=== PATIENT | female | born 1965 | race Caucasian/White ===

== ENCOUNTER → 2017-06-07 | Outpatient (CLI) | payer OTHER ==
--- NOTE | 2017-06-07 14:06 | RAD ---
DATE: 06/07/2017 EXAM: MAMMO JUAN DIAG BILAT HISTORY: Screening COMPARISON: Screening examination 04/20/2015 note is made of additional examination 05/05/2015 and 12/14/2015 FINDINGS: Breast Density: SCATTERED The breast parenchyma shows scattered fibroglandular densities. Breast parenchyma level B. There are some punctate calcifications superiorly in the right breast 7 appearance similar to the previous exam. A clustered group of microcalcifications warranting biopsy is not seen no dominant mass or suspect group of calcifications warranting biopsy is seen in either breast. IMPRESSION: Benign findings BI-RADS CATEGORY: 2 BENIGN FINDING(S) RECOMMENDED FOLLOW-UP: 12M 12 MONTH FOLLOW-UP PQRS compliance statement: Patient information was entered into a reminder system with a target due date 06/07/2018 for the next mammogram. Mammography is a sensitive method for finding small breast cancers, but it does not detect them all and is not a substitute for careful clinical examination. A negative mammogram does not negate a clinically suspicious finding and should not result in delay in biopsying a clinically suspicious abnormality. "Our facility is accredited by the [employer] Mammography Program."
== END | disposition home or self-care (01) ==
LOC: KCIC MAMMO 12:52
PROVIDERS: ATTEND Internal Medicine
DX: R92.2 Inconclusive mammogram (principal)
CPT/HCPCS: G0204; G0279; 77062; 77066

== ENCOUNTER 2017-07-04 18:28 | Emergency (ER) | payer OTHER ==
[~2017-07-04] VITALS: Ht 172.7 cm; Wt 86.2 kg
[2017-07-04] MEDS ORDERED: IV NORMAL SALINE 1000ML BAG 1,000 ML IV SCH (19:07)
[2017-07-04 19:08] LABS: BILIRUBIN,URINE NEGATIVE (NEG); GLUCOSE,URINE NEGATIVE (NEG); NITRITE,URINE POSITIVE (NEG); PH,URINE 5.5; PROTEIN,URINE 100 mg/dL (NEG-TRACE); UROBILINOGEN,URINE 0.2 mg/dL (0.2 mg/dL)
[2017-07-04 19:18] LABS: BACTERIA,URINE MOD /HPF (0-FEW); SQUAMOUS EPITHELIAL CELL,UR FEW /LPF; WBC,URINE TNTC /HPF (0-4)
[2017-07-04] MEDS: fentaNYL PF VIAL 100 MCG/2 ML VIAL IV PRN ×2 (19:26→21:34)
[2017-07-04 19:30] LABS: BASO % 0 % (0-3); EOS % 1 % (0-3); HEMATOCRIT 41.1 % (36.0-47.0); HEMOGLOBIN 13.6 g/dL (12.0-15.5); LYMPH # 1.4 x10^3/uL (1.0-4.8); LYMPH % 11 % (24-48); MEAN CORPUSCULAR HEMOGLOBIN 29 pg (25-35); MEAN CORPUSCULAR HGB CONC 33 g/dL (31-37); MEAN CORPUSCULAR VOLUME 87 fL (79-100); MONO % 7 % (0-9); NEUT % 81 % (31-73); PLATELET COUNT 232 x10^3/uL (140-400); RED CELL DISTRIBUTION WIDTH 13.6 % (11.5-14.5); WHITE BLOOD COUNT 13.3 x10^3/uL (4.0-11.0)
[2017-07-04 19:40] LABS: CALCIUM 9.7 mg/dL (8.5-10.1); CREATININE 1.2 mg/dL (0.6-1.0); GFR 47.2; POTASSIUM 3.5 mmol/L (3.5-5.1)
[2017-07-04 19:41] LABS: NEG OBC UR NEG; POS OBC UR POS
[2017-07-04] MEDS ORDERED: KETOROLAC 30 MG/ML INJ. IV ONE (19:45)
[2017-07-04] MEDS ORDERED: ONDANSETRON PF 4 MG/2 ML VIAL. IV ONE (19:45)
[2017-07-04 19:47] LABS: ALBUMIN 3.6 g/dL (3.4-5.0); TOTAL BILIRUBIN 0.4 mg/dL (0.2-1.0); TOTAL PROTEIN 7.3 g/dL (6.4-8.2)
--- NOTE | 2017-07-04 20:01 | ED.ADGEN ---
Past Medical History Past Medical History: Kidney Stone Past Surgical History: , Other Additional Past Surgical Histo: LITHOTRIPSY X2 Alcohol Use: Rarely Drug Use: None Adult General Chief Complaint Chief Complaint: FLANK PAIN HPI HPI Patient is a 52 year old woman, history of renal calculi status post lithotripsy 2, who presents to the emergency department with a complaint of right flank pain. Patient states has began several days ago, states that she initially thought that she is experiencing a urinary tract infection, and self treated with leftover Cipro Floxin at home 3 days. She states the pain was initially severe, states she did begin to experience bladder spasms and then experienced nausea, and now more persistent dull left lower flank pain which is been unchanged over the past day. She has had some emesis, is unable to eat much today. She denies any diarrhea, any injuries, states that she did have chills today but no fever, denies any weakness, numbness, tingling, rashes. She has had some sore throat today and also headache. States that symptoms do feel consistent with previous episodes of renal cocktail a. She states her last calculus with 17 mm and did require lithotripsy as stated. Denies any other medical history or medical issues, no medications on a regular basis. Review of Systems Review of Systems Constitutional: Denies fever or chills. [] Eyes: Denies change in visual acuity. [] HENT: Denies nasal congestion or sore throat. [] Respiratory: Denies cough or shortness of breath. [] Cardiovascular: Denies chest pain or edema. [] GI: Right lower abdominal pain radiating from right flank, nausea, vomiting, no bloody stools or diarrhea. [] : Initial dysuria, none currently. Musculoskeletal: Denies back pain or joint pain. [] Integument: Denies rash. [] Neurologic: Denies headache, focal weakness or sensory changes. [] Endocrine: Denies polyuria or polydipsia. [] Lymphatic: Denies swollen glands. [] Psychiatric: Denies depression or anxiety. [] Current Medications Current Medications Current Medications Medications (Trade) Dose Ordered Sig/Ruddy Start Time Stop Time Status Last Admin Dose Admin Ceftriaxone Sodium 50 ml @ 100 mls/hr 1X ONCE 07/04/17 21:15 07/04/17 21:44 07/04/17 21:06 100 MLS/HR Fentanyl Citrate (Fentanyl 2ml Vial) 50 mcg PRN Q15MIN PRN 07/04/17 19:15 07/05/17 19:14 07/04/17 19:26 50 MCG Ketorolac Tromethamine (Toradol) 10 mg 1X ONCE 07/04/17 19:45 07/04/17 19:46 DC 07/04/17 19:25 10 MG Ondansetron HCl (Zofran) 4 mg 1X ONCE 07/04/17 19:45 07/04/17 19:46 DC 07/04/17 19:24 4 MG Sodium Chloride 1,000 ml @ 1,000 mls/hr 1X ONCE 07/04/17 21:15 07/04/17 22:14 Allergies Allergies Allergies Coded Allergies Type Severity Reaction Last Updated Verified sulfamethoxazole Allergy Unknown 09/19/13 Yes trimethoprim Allergy Unknown 09/19/13 Yes Physical Exam Physical Exam Constitutional: Well developed, well nourished, appears uncomfortable, non- toxic appearance. [] HENT: Normocephalic, atraumatic, bilateral external ears normal, oropharynx moist, no oral exudates, nose normal. [] Eyes: PERRLA, EOMI, conjunctiva normal, no discharge. [] Neck: Normal range of motion, no tenderness, supple, no stridor. [] Cardiovascular:Heart rate regular rhythm, no murmur , S1, S2, rubs or gallops.[] Lungs & Thorax: Bilateral breath sounds clear to auscultation, no wheezing, rhonchi, rales. No chest or crepitus or tenderness. [] Abdomen: Bowel sounds normal, soft, mild initial tenderness to palpation the suprapubic region, in the right lower quadrant radiating around to the right flank, no masses, no pulsatile masses. [] Skin: Warm, dry, no erythema, no rash. [] Back: No midline or paraspinal tenderness, positive for right-sided CVA tenderness[] Extremities: No tenderness, no cyanosis, no clubbing, ROM intact, no edema. [] Neurologic: Alert and oriented X 3, normal motor function, normal sensory function, no focal deficits noted. [] Psychologic: Affect normal, judgement normal, mood normal. [] Current Patient Data Vital Signs Vital Signs Date Time Temp Pulse Resp B/P (MAP) Pulse Ox O2 Delivery O2 Flow Rate FiO2 07/04/17 20:44 113 149/60 (89) 98 Room Air 07/04/17 18:40 98.8 22 98.8 Lab Values Laboratory Tests Test 07/04/17 18:39 07/04/17 19:00 Urine Collection Type Unknown Urine Color Yellow Urine Clarity Turbid Urine pH 5.5 Urine Specific [place] 1.010 Urine Protein 100 mg/dL (NEG-TRACE) Urine Glucose (UA) Negative mg/dL (NEG) Urine Ketones (Stick) Negative mg/dL (NEG) Urine Blood Large (NEG) Urine Nitrite Positive (NEG) Urine Bilirubin Negative (NEG) Urine Urobilinogen Dipstick 0.2 mg/dL (0.2 mg/dL) Urine Leukocyte Esterase Large (NEG) Urine RBC 6-10 /HPF (0-2) Urine WBC Tntc /HPF (0-4) Urine Squamous Epithelial Cells Few /LPF Urine Bacteria Mod /HPF (0-FEW) Urine Test Negative (NEG) White Blood Count 13.3 x10^3/uL (4.0-11.0) H Red Blood Count 4.70 x10^6/uL (3.50-5.40) Hemoglobin 13.6 g/dL (12.0-15.5) Hematocrit 41.1 % (36.0-47.0) Mean Corpuscular Volume 87 fL (79-100) Mean Corpuscular Hemoglobin 29 pg (25-35) Mean Corpuscular Hemoglobin Concent 33 g/dL (31-37) Red Cell Distribution Width 13.6 % (11.5-14.5) Platelet Count 232 x10^3/uL (140-400) Neutrophils (%) (Auto) 81 % (31-73) H Lymphocytes (%) (Auto) 11 % (24-48) L Monocytes (%) (Auto) 7 % (0-9) Eosinophils (%) (Auto) 1 % (0-3) Basophils (%) (Auto) 0 % (0-3) Neutrophils # (Auto) 10.8 x10^3uL (1.8-7.7) H Lymphocytes # (Auto) 1.4 x10^3/uL (1.0-4.8) Monocytes # (Auto) 0.9 x10^3/uL (0.0-1.1) Eosinophils # (Auto) 0.1 x10^3/uL (0.0-0.7) Basophils # (Auto) 0.0 x10^3/uL (0.0-0.2) Sodium Level 140 mmol/L (136-145) Potassium Level 3.5 mmol/L (3.5-5.1) Chloride Level 104 mmol/L (98-107) Carbon Dioxide Level 27 mmol/L (21-32) Anion Gap 9 (6-14) Blood Urea Nitrogen 22 mg/dL (7-20) H Creatinine 1.2 mg/dL (0.6-1.0) H Estimated GFR (Cockcroft-Gault) 47.2 BUN/Creatinine Ratio 18 (6-20) Glucose Level 118 mg/dL (70-99) H Calcium Level 9.7 mg/dL (8.5-10.1) Total Bilirubin 0.4 mg/dL (0.2-1.0) Aspartate Amino Transferase (AST) 18 U/L (15-37) Alanine Aminotransferase (ALT) 24 U/L (14-59) Alkaline Phosphatase 112 U/L (46-116) Total Protein 7.3 g/dL (6.4-8.2) Albumin 3.6 g/dL (3.4-5.0) Albumin/Globulin Ratio 1.0 (1.0-1.7) Laboratory Tests 07/04/17 19:00 Laboratory Tests 07/04/17 19:00 EKG EKG ECG: Rhythm strip: Heart rate 101 beats/minute, sinus tachycardia, no ectopy. As interpreted by me.[] Radiology/Procedures Radiology/Procedures [facility] [address] [place] [address] IMAGING REPORT Signed PATIENT: KATIE QUESAAD ACCOUNT: [id number] : 1965 LOCATION: ER AGE: 52 SEX: F EXAM STATUS: REG ER ORD. PHYSICIAN: GALLO MELCHOR DO REASON: R flakn pain/hx of renal calculi w/ lithotripsy PROCEDURE: CT ABDOMEN PELVIS WO CONTRAST Exam performed: CT abdomen and pelvis without contrast HISTORY: Severe right flank pain, history of stones. DATE OF SERVICE: 07/04/2017. COMPARISON: None available TECHNIQUE: Contiguous helical acquisitions are obtained through the abdomen and pelvis without IV contrast. Sagittal and coronal reformatted images are obtained and reviewed. FINDINGS: A 22 mm calculus in the left renal pelvis is redemonstrated. Additional smaller calculi upper previously seen in the right inferior renal pole are redemonstrated, however appears smaller in size. Mild right hydronephrosis is seen. The right ureter is dilated throughout its course extending up to the right vesicoureteral junction where a 5.5 mm calculus is identified.No left renal calculi. No perinephric stranding is seen. The lung bases are clear. Visualized heart is normal. Liver, spleen, pancreas and gallbladder appear grossly normal. Subdiaphragmatic right hepatic lobe cyst redemonstrated. Both adrenal glands are symmetric. The small and large bowel loops are nondilated and unremarkable. No retroperitoneal or mesenteric lymphadenopathy seen. Visualized appendix is normal. No inflammatory changes seen in the right lower quadrant. The urinary bladder is partially decompressed. The uterus is anteverted. No adnexal masses seen. No free or focal fluid collections or pelvic lymphadenopathy seen. IMPRESSION: 5.5 mm obstructing calculus in the distal right ureter causing mild proximal hydroureteronephrosis. 22.0 mm nonobstructing calculus in the right renal pelvis with additional smaller nonobstructing calculi in the right inferior renal pole. PQRS Compliance Statement: One or more of the following individualized dose reduction techniques were utilized for this examination: 1. Automated exposure control 2. Adjustment of the mA and/or kV according to patient size 3. Use of iterative reconstruction technique Electronically signed by: Ileana Ferrera MD (07/04/2017 8:23 PM) [facility] DICTATED and SIGNED BY: ILEANA FERRERA MD DATE: 07/04/172016 CC: GALLO MELCHOR DO; AN FRANCO MD ~ Course & Med Decision Making Course & Med Decision Making Pertinent Labs and Imaging studies reviewed. (See chart for details) Patient received Toradol, fentanyl, IV fluids in the ED, and is resting more comfortably. After discussion at bedside, based on patient's history of large renal calculi, requiring lithotripsy, patient is agreeable to receiving CT of the abdomen and pelvis without contrast to further elucidate her symptoms and given a definitive diagnosis and size of stone if present. Since urinalysis reveals a nitrate positive urinary tract infection with bacteria, and to numerous to count white blood cells. CT reveals a 5-1/2 mm obstructing renal calculi at the right UVJ. There is hydronephrosis and edema noted. I did discuss the signs and patient, she is receive multiple doses of analgesia, and also antiemetics in the ED, is resting or completely this time as stated. Heart rate is improved although the patient remains mildly tachycardic between upper 90s to low 100s, blood pressure is 120s over 60s. Patient noted to have a leukocytosis of 13.3, and left shift. Other significant electrolyte abnormalities not identified, creatinine is 1.2 with BUN of 22. Patient is requesting to be transferred to [facility], and she's been treated the previously had a previous lithotripsies performed at this facility. I did speak with the nurse prison guard supervisor at [facility], and with the internal medicine nurse practitioner, Julieta Marti, who confirms that urology coverage is available, patient accepted to the medicine service of Dr. Rod, to a medical telemetry bed, with urology consultation. I did discuss this with the patient, she is agreeable with this transfer and plan. She has received additional IV fluids, and coverage with ceftriaxone in the ED. Awaiting transport to [facility] in stable condition with plan as above. Dragon Disclaimer Dragon Disclaimer This electronic medical record was generated, in whole or in part, using a voice recognition dictation system. Departure Impression: Primary Impression: Hydronephrosis with obstructing calculus Additional Impression: Urinary tract infection Disposition: 05 TRANSFER OTHER Condition: IMPROVED Problem Qualifiers GALLO MELCHOR DO Jul 04, 2017 20:01
--- NOTE | 2017-07-04 20:26 | RAD ---
Exam performed: CT abdomen and pelvis without contrast HISTORY: Severe right flank pain, history of stones. DATE OF SERVICE: 07/04/2017. COMPARISON: None available TECHNIQUE: Contiguous helical acquisitions are obtained through the abdomen and pelvis without IV contrast. Sagittal and coronal reformatted images are obtained and reviewed. FINDINGS: A 22 mm calculus in the left renal pelvis is redemonstrated. Additional smaller calculi upper previously seen in the right inferior renal pole are redemonstrated, however appears smaller in size. Mild right hydronephrosis is seen. The right ureter is dilated throughout its course extending up to the right vesicoureteral junction where a 5.5 mm calculus is identified.No left renal calculi. No perinephric stranding is seen. The lung bases are clear. Visualized heart is normal. Liver, spleen, pancreas and gallbladder appear grossly normal. Subdiaphragmatic right hepatic lobe cyst redemonstrated. Both adrenal glands are symmetric. The small and large bowel loops are nondilated and unremarkable. No retroperitoneal or mesenteric lymphadenopathy seen. Visualized appendix is normal. No inflammatory changes seen in the right lower quadrant. The urinary bladder is partially decompressed. The uterus is anteverted. No adnexal masses seen. No free or focal fluid collections or pelvic lymphadenopathy seen. IMPRESSION: 5.5 mm obstructing calculus in the distal right ureter causing mild proximal hydroureteronephrosis. 22.0 mm nonobstructing calculus in the right renal pelvis with additional smaller nonobstructing calculi in the right inferior renal pole. PQRS Compliance Statement: One or more of the following individualized dose reduction techniques were utilized for this examination: 1. Automated exposure control 2. Adjustment of the mA and/or kV according to patient size 3. Use of iterative reconstruction technique Electronically signed by: Ileana Ferrera MD (07/04/2017 8:23 PM) [facility]
[2017-07-04] MEDS ORDERED: IV NORMAL SALINE 1000ML BAG 1,000 ML IV ONE (21:15)
[2017-07-04 21:44] VITALS: BP 124/60
== END 2017-07-04 22:13 | disposition short-term general hospital (02) ==
LOC: ER 18:28
DX: N13.2 Hydronephrosis with renal and ureteral calculous obstruction (principal); N39.0 Urinary tract infection, site not specified; J02.9 Acute pharyngitis, unspecified; R51 Headache; Z87.442 Personal history of urinary calculi
CPT/HCPCS: 36415; 74176; 80053; 81001; 81025; 85025; 87086; 96361; 96365; 96375; 96376; 99285; J0690; J1885; J2405; J3010; J7030

== ENCOUNTER → 2017-10-08 | Outpatient (CLI) | payer OTHER | END | disposition home or self-care (01) | LOC: US 06:53 | DX: N20.2 Calculus of kidney with calculus of ureter (principal); Z87.442 Personal history of urinary calculi | CPT/HCPCS: 74018; 76770 ==

== ENCOUNTER → 2018-10-09 | Outpatient (CLI) | payer OTHER ==
[2018-10-09 08:24] LABS: BASO % 1 % (0-3); EOS # 0.2 x10^3/uL (0.0-0.7); EOS % 3 % (0-3); HEMATOCRIT 41.2 % (36.0-47.0); HEMOGLOBIN 14.2 g/dL (12.0-15.5); LYMPH # 1.5 x10^3/uL (1.0-4.8); LYMPH % 24 % (24-48); MEAN CORPUSCULAR HEMOGLOBIN 30 pg (25-35); MEAN CORPUSCULAR HGB CONC 35 g/dL (31-37); MEAN CORPUSCULAR VOLUME 88 fL (79-100); MONO # 0.4 x10^3/uL (0.0-1.1); MONO % 7 % (0-9); NEUT # 4.1 x10^3uL (1.8-7.7); NEUT % 65 % (31-73); PLATELET COUNT 239 x10^3/uL (140-400); RED BLOOD COUNT 4.71 x10^6/uL (3.50-5.40); RED CELL DISTRIBUTION WIDTH 13.5 % (11.5-14.5); WHITE BLOOD COUNT 6.3 x10^3/uL (4.0-11.0)
[2018-10-09 08:53] LABS: ALBUMIN 3.6 g/dL (3.4-5.0); ALBUMIN/GLOBULIN RATIO 0.9 (1.0-1.7); CALCIUM 9.4 mg/dL (8.5-10.1); CREATININE 0.8 mg/dL (0.6-1.0); POTASSIUM 4.4 mmol/L (3.5-5.1); TOTAL BILIRUBIN 0.4 mg/dL (0.2-1.0); TOTAL PROTEIN 7.4 g/dL (6.4-8.2)
[2018-10-09 08:55] LABS: CHOLESTEROL/HDL RATIO 3.1
[2018-10-10 00:17] LABS: HEMOGLOBIN A1C 5.4 % (4.8-5.6)
== END | disposition home or self-care (01) ==
LOC: LAB 08:09
PROVIDERS: ATTEND Internal Medicine
DX: Z13.220 Encounter for screening for lipoid disorders (principal); Z13.1 Encounter for screening for diabetes mellitus; N20.0 Calculus of kidney; R53.83 Other fatigue; R63.5 Abnormal weight gain
CPT/HCPCS: 36415; 80053; 80061; 82306; 83036; 84443; 85025

== ENCOUNTER → 2018-12-05 | Outpatient (CLI) | payer OTHER ==
[~2018-12-05] MED LIST: CHOL10003 PO; ERGO500027 PO; MULT1TAB52 PO
--- NOTE | 2018-12-05 09:46 | KCIC ---
EXAM: Bilateral digital screening mammogram with tomosynthesis. HISTORY: 53-year-old female presents for screening mammography. TECHNIQUE: Full-field digital craniocaudal and mediolateral oblique 2D and 3D tomosynthesis images of both breasts are obtained for evaluation. Computer aided detection with V WaveD software version 9.3 was applied. COMPARISON: 06/07/2017 BREAST PARENCHYMAL DENSITY: Level C - Heterogeneously dense. FINDINGS: There is no new suspicious mass, microcalcification or region of architectural distortion. There is stable areas of nodularity within both breasts, allowing for differences in technique. IMPRESSION: BI-RADS Category 2: Benign finding(s). RECOMMENDATION: Annual mammography is recommended. If your mammogram demonstrates that you have dense breast tissue, which could hide abnormalities, and if you have other risk factors for breast cancer that have been identified, you might benefit from supplemental screening tests that may be suggested by your ordering physician. Dense breast tissue, in and of itself, is a relatively common condition. This information is not provided to cause undue concern, but rather to raise your awareness and to promote discussion with your physician regarding the presence of other risk factors, in addition to dense breast tissue. A report of your mammography results will be sent to you and your physician. You should contact your physician if you have any questions or concerns regarding this report. Mammography is a sensitive method for finding small breast cancers, but it does not detect them all and is not a substitute for careful clinical examination. A negative mammogram does not negate a clinically suspicious finding and should not result in delay in biopsying a clinically suspicious abnormality. PQRS compliance statement - Patient information was entered into a reminder system with a target due date for the next mammogram. "Our facility is accredited by the [employer] Mammography Program." Electronically signed by: Taylor Demarco MD (12/05/2018 9:43 AM) [facility]
== END | disposition home or self-care (01) ==
LOC: KCIC MAMMO 07:39
PROVIDERS: ATTEND Internal Medicine
DX: Z12.31 Encounter for screening mammogram for malignant neoplasm of breast (principal)
CPT/HCPCS: 77063; 77067

== ENCOUNTER → 2019-01-23 | Day surgery (SDC) | payer OTHER ==
[~2019-01-23] MED LIST changes: +HYDROmorphone 2 MG/ML VIAL IV PRN; +IV RINGERS,LACTATED 1000ML 1,000 ML IV SCH; +LIDOCAINE 1% PF 2 ML VIAL. ID PRN; +LIDOCAINE 2% PF 5 ML VIAL. ONE; +MORPHINE SULFATE 2 MG/ML VIAL. IV PRN; +ONDANSETRON PF 4 MG/2 ML VIAL. IV PRN; +PROCHLORPERAZINE 10 MG/2 ML VIAL. IV PRN; +PROPOFOL 40 ML IV ONE; +fentaNYL PF VIAL 100 MCG/2 ML VIAL IV PRN
--- NOTE | 2019-01-23 10:03 | PREOP HP ---
DATE OF SERVICE: DATE OF PROCEDURE: 01/23/2019 REQUESTING PHYSICIAN: Dr. Eveline Valencia. PRIMARY CARE PHYSICIAN: Dr. Eveline Valencia. REASON FOR PROCEDURE: Colorectal cancer screening. HISTORY OF PRESENT ILLNESS: This is a 53-year-old female who presents for colorectal cancer screening. This is her first colonoscopy and she denies a family history of colon cancer. ALLERGIES: BENADRYL. PAST MEDICAL HISTORY: Endometriosis. FAMILY HISTORY: Mother with polyps. SOCIAL HISTORY: She denies tobacco, alcohol or IV drug abuse. MEDICATIONS: MAR reviewed. REVIEW OF SYSTEMS: A 13-point review of systems was done. It is positive as per HPI, otherwise negative. PHYSICAL EXAMINATION: VITAL SIGNS: She is afebrile. Vital signs are stable. GENERAL: She is a well-developed, well-nourished female, in no apparent distress. HEENT: Oropharynx is clear. CARDIOVASCULAR: S1, S2. LUNGS: Clear. ABDOMEN: Normoactive bowel sounds, soft, nontender, nondistended. EXTREMITIES: No edema. NEUROLOGIC: Awake, alert, oriented x 3. ASSESSMENT AND PLAN: Colon cancer screening. The risks and benefits of the procedure including bleeding, perforation, non-diagnosis and sedation were explained. She has agreed to proceed. Thank you for allowing me to participate in the care of this patient. KENDALL FERNÁNDEZ MD DR: IOANA/rell JOB#: [id number] / [id number]
[2019-01-23 10:08] VITALS: BP 151/67
--- NOTE | 2019-01-24 14:06 | PATHOLOGY ---
[facility] Accession Number: [id number] . 01 Material submitted: . colon - SIGMOID POLYP. Modifiers: sigmoid . 01 Clinical history: . Screening . 02 Diagnosis: Colon biopsies, sigmoid polyp: - Tubular adenoma. ([facility] 01/24/2019) QTP/01/24/2019 . 02 Comment: There is no high-grade dysplasia or evidence of malignancy. ([facility] 01/23/2019). . 02 Electronically signed: . Dusty Iniguez MD, Pathologist NPI- [id number] . 01 Gross description: . The specimen is received in formalin, labeled "[place], Isha, sigmoid polyp" and consists of 2 fragments of ruvalcaba tissue measuring 0.3 x 0.3 x 0.1 cm each which are entirely submitted in A1. (SDY; 01/23/2019) SYU/SYU . 02 Pathologist provided ICD-10: D12.5 . 02 CPT . 705190 Specimen Comment: A courtesy copy of this report has been sent to Specimen Comment: [phone], . Specimen Comment: Report sent to / DR OVALLES Performed at: 01 [facility] [address], [place] [id number] MD Raudel Blankenship MD Phone: [phone] Performed at: 02 [facility] [address] [place], [place] [id number] MD Dusty Iniguez MD Phone: [phone]
== END | disposition home or self-care (01) ==
LOC: SURG 08:00
PROVIDERS: ATTEND Internal Medicine Gastroenterology
DX: Z12.11 Encounter for screening for malignant neoplasm of colon (principal); D12.5 Benign neoplasm of sigmoid colon; K57.30 Diverticulosis of large intestine without perforation or abscess without bleeding; K64.0 First degree hemorrhoids; Z88.1 Allergy status to other antibiotic agents; Z88.8 Allergy status to other drugs, medicaments and biological substances; Z79.899 Other long term (current) drug therapy; Z98.890 Other specified postprocedural states; Z87.42 Personal history of other diseases of the female genital tract
CPT/HCPCS: 45380; 88305; J2001; J2704

== ENCOUNTER 2019-03-16 20:09 | Emergency (ER) | payer OTHER ==
[~2019-03-16] VITALS: Ht 172.7 cm; Wt 93.0 kg
[~2019-03-16 20:09] MED LIST changes: -HYDROmorphone 2 MG/ML VIAL IV PRN; -IV RINGERS,LACTATED 1000ML 1,000 ML IV SCH; -LIDOCAINE 1% PF 2 ML VIAL. ID PRN; -LIDOCAINE 2% PF 5 ML VIAL. ONE; -MORPHINE SULFATE 2 MG/ML VIAL. IV PRN; -ONDANSETRON PF 4 MG/2 ML VIAL. IV PRN; -PROCHLORPERAZINE 10 MG/2 ML VIAL. IV PRN; -PROPOFOL 40 ML IV ONE; -fentaNYL PF VIAL 100 MCG/2 ML VIAL IV PRN
[2019-03-16 20:27] LABS: BILIRUBIN,URINE NEGATIVE (NEG); CLARITY,URINE CLEAR; COLOR,URINE YELLOW; NITRITE,URINE NEGATIVE (NEG); PROTEIN,URINE NEGATIVE (NEG-TRACE)
[2019-03-16 20:37] LABS: BACTERIA,URINE FEW /HPF (0-FEW); RBC,URINE 0 /HPF (0-2); SQUAMOUS EPITHELIAL CELL,UR MANY /LPF
[2019-03-16 20:51] LABS: BASO # 0.1 x10^3/uL (0.0-0.2); BASO % 1 % (0-3); EOS # 0.2 x10^3/uL (0.0-0.7); EOS % 2 % (0-3); HEMATOCRIT 39.7 % (36.0-47.0); HEMOGLOBIN 13.4 g/dL (12.0-15.5); LYMPH # 1.8 x10^3/uL (1.0-4.8); LYMPH % 20 % (24-48); MEAN CORPUSCULAR HEMOGLOBIN 29 pg (25-35); MEAN CORPUSCULAR HGB CONC 34 g/dL (31-37); MEAN CORPUSCULAR VOLUME 87 fL (79-100); MONO # 0.5 x10^3/uL (0.0-1.1); MONO % 5 % (0-9); NEUT # 6.6 x10^3uL (1.8-7.7); NEUT % 72 % (31-73); PLATELET COUNT 256 x10^3/uL (140-400); RED BLOOD COUNT 4.59 x10^6/uL (3.50-5.40); RED CELL DISTRIBUTION WIDTH 13.5 % (11.5-14.5); WHITE BLOOD COUNT 9.2 x10^3/uL (4.0-11.0)
[2019-03-16 20:52] VITALS: BP 126/82
[2019-03-16 21:04] LABS: CALCIUM 9.6 mg/dL (8.5-10.1); CREATININE 0.8 mg/dL (0.6-1.0); POTASSIUM 3.6 mmol/L (3.5-5.1)
[2019-03-16 21:10] LABS: ALBUMIN 3.9 g/dL (3.4-5.0); ALBUMIN/GLOBULIN RATIO 1.1 (1.0-1.7); TOTAL BILIRUBIN 0.2 mg/dL (0.2-1.0); TOTAL PROTEIN 7.3 g/dL (6.4-8.2)
--- NOTE | 2019-03-16 21:33 | RAD ---
EXAM: PA and Lateral Views of the Chest DATE: 03/16/2019 8:57 PM INDICATION: Right rib pain after cough COMPARISON: No Prior FINDINGS: The heart is not enlarged. Mediastinal and hilar contours are normal. No lobar consolidation. No pleural effusion or pneumothorax. IMPRESSION: 1. No lobar consolidation. No radiographic evidence for acute cardiopulmonary process. 2. Within the limitations of radiographic imaging, no obvious rib fracture is identified. No pneumothorax. Electronically signed by: Lui Cardenas MD (03/16/2019 9:30 PM) [facility]
[2019-03-16] MEDS: DEXAMETHASONE SOD PHOS 20 MG/5 ML VIAL. IV ONE (21:47)
[2019-03-16] MEDS: HYDROcodone/APAP 5/325MG 1 TAB TABLET PO ONE (21:47)
--- NOTE | 2019-03-16 21:48 | PHYS DOC ---
Past Medical History Past Medical History: Endometriosis, Kidney Stone (PATRICK BEDOLLA APRN) Past Surgical History: , Other Additional Past Surgical Histo: LITHOTRIPSY X2 (PATRICK BEDOLLA APRN) Alcohol Use: Rarely Drug Use: None (PATRICK BEDOLLA APRN) Adult General Chief Complaint Chief Complaint: FLANK PAIN HPI HPI Patient is a 53 year old female who presents to the emergency department, accompanied by her , with complaints of right side pain that radiates to her right mid back. Patient states the pain began last night after she coughed. Patient reports having a productive cough with a respiratory infection that she was seen in urgent care for an prescribed Augmentin last week. She denies any shortness of breath, fever, chest pain, nausea, vomiting, or known injury. Patient states that the pain is exacerbated by coughing. She currently rates the pain 8 out of 10 on the pain scale, there are no alleviating factors. (PATRICK BEDOLLA APRN) Review of Systems Review of Systems Constitutional: Denies fever or chills [] Eyes: Denies redness, or eye pain [] HENT: Denies sore throat; reports nasal congestion Respiratory: See history of present illness Cardiovascular: No additional information not addressed in HPI [] GI: Denies abdominal pain, nausea, or vomiting Musculoskeletal: See history of present illness Integument: Denies rash or skin lesions [] Neurologic: Denies headache, focal weakness or sensory changes [] Complete systems were reviewed and found to be within normal limits, except as documented in this note. (PATRICK BEDOLLA APRN) Current Medications Current Medications Current Medications Medications (Trade) Dose Ordered Sig/Ruddy Start Time Stop Time Status Last Admin Dose Admin Acetaminophen/ Hydrocodone Bitart (Lortab 5/325) 1 tab 1X ONCE 03/16/19 21:45 03/16/19 21:46 DC 03/16/19 21:47 1 TAB Dexamethasone Sodium Phosphate (Decadron) 10 mg 1X ONCE 03/16/19 21:15 03/16/19 21:16 DC 03/16/19 21:47 10 MG (CLINT CANTU DO) Allergies Allergies Allergies Coded Allergies Type Severity Reaction Last Updated Verified sulfamethoxazole Allergy Intermediate 01/23/19 Yes trimethoprim Allergy Intermediate 01/23/19 Yes (CLINT CANTU DO) Physical Exam Physical Exam Constitutional: Well developed, well nourished, moderate distress, non-toxic appearance, obese [] HENT: Normocephalic, atraumatic, bilateral external ears normal, oropharynx moist, nose normal. [] Eyes: conjunctiva normal, no discharge. [] Neck: Normal range of motion, no stridor. [] Cardiovascular:Heart rate regular rhythm, no murmur [] Lungs & Thorax: Bilateral breath sounds clear to auscultation [] Skin: Warm, dry, no erythema, no rash. [] Back: Right thoracic paraspinal tenderness to palpation, no subcutaneous emphysema or crepitus Extremities: No cyanosis, no clubbing, ROM intact Neurologic: Alert and oriented X 3, no focal deficits noted. [] Psychologic: Affect normal, judgement normal, mood normal. [] (PATRICK BEDOLLA APRN) Current Patient Data Vital Signs Vital Signs Date Time Temp Pulse Resp B/P (MAP) Pulse Ox O2 Delivery O2 Flow Rate FiO2 03/16/19 20:52 104 20 126/82 (97) 97 Room Air 03/16/19 20:45 98.0 98.0 (CLINT CANTU DO) Lab Values Laboratory Tests Test 03/16/19 20:18 03/16/19 20:40 Urine Collection Type Unknown Urine Color Yellow Urine Clarity Clear Urine pH 6.0 Urine Specific [place] 1.020 Urine Protein Negative mg/dL (NEG-TRACE) Urine Glucose (UA) Negative mg/dL (NEG) Urine Ketones (Stick) Negative mg/dL (NEG) Urine Blood Negative (NEG) Urine Nitrite Negative (NEG) Urine Bilirubin Negative (NEG) Urine Urobilinogen Dipstick 1.0 mg/dL (0.2 mg/dL) Urine Leukocyte Esterase Small (NEG) Urine RBC 0 /HPF (0-2) Urine WBC 5-10 /HPF (0-4) Urine Squamous Epithelial Cells Many /LPF Urine Bacteria Few /HPF (0-FEW) Urine Mucus Mod /LPF White Blood Count 9.2 x10^3/uL (4.0-11.0) Red Blood Count 4.59 x10^6/uL (3.50-5.40) Hemoglobin 13.4 g/dL (12.0-15.5) Hematocrit 39.7 % (36.0-47.0) Mean Corpuscular Volume 87 fL (79-100) Mean Corpuscular Hemoglobin 29 pg (25-35) Mean Corpuscular Hemoglobin Concent 34 g/dL (31-37) Red Cell Distribution Width 13.5 % (11.5-14.5) Platelet Count 256 x10^3/uL (140-400) Neutrophils (%) (Auto) 72 % (31-73) Lymphocytes (%) (Auto) 20 % (24-48) L Monocytes (%) (Auto) 5 % (0-9) Eosinophils (%) (Auto) 2 % (0-3) Basophils (%) (Auto) 1 % (0-3) Neutrophils # (Auto) 6.6 x10^3uL (1.8-7.7) Lymphocytes # (Auto) 1.8 x10^3/uL (1.0-4.8) Monocytes # (Auto) 0.5 x10^3/uL (0.0-1.1) Eosinophils # (Auto) 0.2 x10^3/uL (0.0-0.7) Basophils # (Auto) 0.1 x10^3/uL (0.0-0.2) Sodium Level 142 mmol/L (136-145) Potassium Level 3.6 mmol/L (3.5-5.1) Chloride Level 104 mmol/L (98-107) Carbon Dioxide Level 27 mmol/L (21-32) Anion Gap 11 (6-14) Blood Urea Nitrogen 25 mg/dL (7-20) H Creatinine 0.8 mg/dL (0.6-1.0) Estimated GFR (Cockcroft-Gault) 75.0 BUN/Creatinine Ratio 31 (6-20) H Glucose Level 111 mg/dL (70-99) H Calcium Level 9.6 mg/dL (8.5-10.1) Total Bilirubin 0.2 mg/dL (0.2-1.0) Aspartate Amino Transferase (AST) 15 U/L (15-37) Alanine Aminotransferase (ALT) 21 U/L (14-59) Alkaline Phosphatase 101 U/L (46-116) Total Protein 7.3 g/dL (6.4-8.2) Albumin 3.9 g/dL (3.4-5.0) Albumin/Globulin Ratio 1.1 (1.0-1.7) Laboratory Tests 03/16/19 20:40 Laboratory Tests 03/16/19 20:40 Microbiology 03/16/19 Urine Culture - Preliminary, Resulted 03/16/19 Urine Culture Result 1 (MATHEUS) - Preliminary, Resulted (CLINT CANTU DO) EKG EKG [] (PATRICK BEDOLLA APRN) Radiology/Procedures Radiology/Procedures PROCEDURE: CHEST PA & LATERAL EXAM: PA and Lateral Views of the Chest DATE: 03/16/2019 8:57 PM INDICATION: Right rib pain after cough COMPARISON: No Prior FINDINGS: The heart is not enlarged. Mediastinal and hilar contours are normal. No lobar consolidation. No pleural effusion or pneumothorax. IMPRESSION: 1. No lobar consolidation. No radiographic evidence for acute cardiopulmonary process. 2. Within the limitations of radiographic imaging, no obvious rib fracture is identified. No pneumothorax.[] (PATRICK BEDOLLA APRN) Course & Med Decision Making Course & Med Decision Making Pertinent Labs and Imaging studies reviewed. (See chart for details) dx: Acute chest wall pain ddx: Pneumothorax, rib fracture, pneumonia Patient was given 10 mg of IV Decadron and 1 hydrocodone in the emergency department. She reported feeling better after pain medication. CBC is unremarkable UA is negative for any blood or infection. CMP is unremarkable Chest x-ray negative for pneumonia, pneumothorax, or rib fracture Prescription written for hydrocodone #10. Continue taking the antibiotics as previously prescribed. Follow-up with primary care doctor if symptoms persist, return to ER symptoms worsen. Patient verbalized an understanding of home care, medications, follow-up, and return to ED instructions and was in agreement with the plan of care. [] (PATRICK BEDOLLA APRN) Dragon Disclaimer Dragon Disclaimer This electronic medical record was generated, in whole or in part, using a voice recognition dictation system. (PATRICK BEDOLLA APRN) Departure Departure Impression: Primary Impression: Acute chest wall pain Disposition: HOME, SELF-CARE Condition: STABLE Referrals: LEONCIO OVALLES MD (PCP) Patient Instructions: Chest Wall Pain Additional Instructions: Use the incentive spirometer provided every 2 hours while awake. Fill the prescription and use as directed. Follow up with PCP if sx persist, return to the ER if sx worsen. Scripts Hydrocodone Bit/Acetaminophen (HYDROCODONE-APAP 5-325 ) 1 Tab Tablet 1 TAB PO PRN Q6HRS PRN for PAIN for 3 Days, #10 TAB 0 Refills Prov: PATRICK BEDOLLA DRUPAL DEVELOPER 03/16/19 Attending Signature Attending Signature I have reviewed the PA/[employer]SEMBLER's note and plan of care. I was available for consultation as needed during the patient's visit in the emergency department. I agree with the clinical impression, plan, and disposition. (CLINT CANTU DO) PATRICK BEDOLLA DRUPAL DEVELOPER Mar 16, 2019 21:48 CLINT CANTU DO Mar 19, 2019 18:40
[2019-03-16] MEDS ORDERED: HYDR-2761 PO (21:52)
== END 2019-03-16 22:10 | disposition home or self-care (01) ==
LOC: ER 20:09
DX: R07.81 Pleurodynia (principal); R05 Cough; R09.81 Nasal congestion; M54.6 Pain in thoracic spine; Z87.442 Personal history of urinary calculi; Z88.1 Allergy status to other antibiotic agents; Z88.2 Allergy status to sulfonamides
CPT/HCPCS: 36415; 71046; 80053; 81001; 85025; 87086; 96374; 99285; J1100

== ENCOUNTER → 2021-02-07 | Outpatient (CLI) | payer OTHER ==
[~2021-02-07] MED LIST changes: +HYDR-2761 PO; +MULT-445 PO; -MULT1TAB52 PO
--- NOTE | 2021-02-07 14:03 | RAD ---
DATE: February 07, 2021 EXAM: DIGITAL DIAGNOSTIC RT, BREAST BILATERAL HISTORY: Further evaluation of mass of the 12:00 position of the right breast and nodule of the 8:30 position of the left breast. COMPARISON: January 27, 2021 This study was interpreted with the benefit of Computerized Aided Detection (CAD). FINDINGS: Diagnostic mammography of the right side: Additional mammographic views demonstrated persistent mass of the 12:00 position of the right breast. Right breast sonography: High-resolution sonography of the 12:00 position of the right breast demonstrates irregular heterogeneous mass which measures 17 mm in greatest dimension. Small punctate calcifications are seen within it. There is some color Doppler flow along the periphery. Sonography of the right axillary region demonstrates normal-appearing lymph nodes. Left breast sonography: High-resolution sonography of the 7 to 10:00 position of the left breast demonstrates a cluster of cysts at the 9:00 position 5 cm from nipple measuring 8 mm in size. At the 8:30 position, there is a complex cyst measuring 11 mm. This finding corresponds to the mammographic finding. IMPRESSION: Persistent mass of the 12:00 position of the right breast. Recommend ultrasound-guided core biopsy. Complex cysts of the 9:00 position and 8:30 position of the left breast. The latter finding corresponds to the mammographic finding. This may be followed up in 6 months with another sonogram of the left breast. Note-I discussed the findings and recommendation for biopsy on the right side with the patient after completion of the study on February 07, 2021. In addition, I called this result to the voicemail for the nurse for Dr. Eveline Valencia at 1:50 PM on February 07, 2021. BI-RADS CATEGORY: 5 HIGHLY SUGGESTIVE MALIGNANCY RECOMMENDED FOLLOW-UP: BIO BIOPSY RECOMMENDED PQRS compliance statement: Patient information was entered into a reminder system with a target due date August 10, 2021 for the next imaging study. Mammography is a sensitive method for finding small breast cancers, but it does not detect them all and is not a substitute for careful clinical examination. A negative mammogram does not negate a clinically suspicious finding and should not result in delay in biopsying a clinically suspicious abnormality. "Our facility is accredited by the [employer] Mammography Program."
== END ==
LOC: MAMMO 12:30
PROVIDERS: ATTEND Internal Medicine
DX: N60.02 Solitary cyst of left breast (principal); N63.11 Unspecified lump in the right breast, upper outer quadrant
CPT/HCPCS: 77065; 76641-50

== ENCOUNTER → 2021-02-09 | Outpatient (CLI) | payer OTHER ==
--- NOTE | 2021-02-09 14:16 | RAD ---
DATE: February 09, 2021 EXAM: DIGITAL DIAGNOSTIC RT, US GUID NDL PLACE GENERAL HISTORY: Irregular mass at the 12:00 position of the right breast COMPARISON: February 07, 2021 ULTRASOUND-GUIDED CORE BIOPSY OF THE RIGHT BREAST Indications: As above. Procedure: Sonography of the right breast was performed which demonstrates a mass of the 12:00 position of the right breast. The procedure and possible complications including bleeding and infection were explained. The patient provided both verbal and written consent. An appropriate skin cris was made on the right breast using ultrasound guidance. A timeout was performed which confirmed the name of the patient and date of and the type of procedure and the side of the procedure. Allergies to medications were reviewed. The patient's questions were answered. The right breast was prepped and draped in the usual sterile fashion. A total of 8 cc of 1% lidocaine was utilized for local anesthesia. Using sterile technique and ultrasound guidance, a small skin neck was made and a total of 5 separate 14-gauge Bard core biopsies were obtained using ultrasound guidance. Sonographic spot images were obtained. Following this, a breast biopsy marker clip was placed into the mass using ultrasound guidance. A sonographic spot image demonstrates the biopsy clip within the nodule. Manual pressure was applied for 5 minutes and hemostasis was deemed adequate. Sterile Band-Aid was applied to the biopsy site. The patient tolerated the procedure well without complication. The biopsy samples were placed into formalin and sent to pathology for further evaluation. Follow-up will be with the patient's referring physician. IMPRESSION: Ultrasound-guided core biopsy sampling of the 12:00 position mass of the right breast was performed without complication. Pathology results pending. 2 VIEW 2-D DIAGNOSTIC MAMMOGRAM OF THE RIGHT BREAST FINDINGS: A metallic comma shaped biopsy clip is seen within the mass with calcifications of the 12:00 position of the right breast. IMPRESSION: Biopsy clip placement into the 12:00 position mass of the right breast.
--- NOTE | 2021-02-12 02:12 | PATHOLOGY ---
[facility] Accession Number: [id number] . 01 Material submitted: . breast - RIGHT BREAST MASS 12 OCLOCK 5 CM FROM NIPPLE 1.7CM. Modifiers: right, 12:00, 5CM FROM NIPPLE . 01 Clinical history: . RIGHT BREAST MASS 12:00 5CM FROM NIPPLE RIGHT BREAST BIOPSY ABD MAMMO . 02 Diagnosis: "Right breast mass 12 o'clock, 5 cmfn, 1.7 cm", needle biopsy: - INVASIVE DUCTAL CARCINOMA, POORLY DIFFERENTIATED, GRADE III, WITH FOCAL MUCINOUS FEATURES, INVOLVING MULTIPLE CORES, LONGEST CONTIGUOUS FOCUS MEASURING 1.5 CM ON THE SLIDE, WITH MICROCALCIFICATIONS PRESENT. (SEE COMMENT). (CLW:nereida; 02/11/2021) [facility] 02/11/2021 1449 Local . 02 Comment: Surgical Pathology Cancer Case Summary INVASIVE CARCINOMA OF THE BREAST: Biopsy . Procedure ___ Needle biopsy . Specimen Laterality ___ Right . Tumor Site ___ Clock position: 12 o'clock ___ Distance from nipple (centimeters): 5 cm . Tumor Size ___ Greatest dimension of largest invasive focus >1 mm: 15 mm, or at least 15 mm . Histologic Type ___ Invasive carcinoma of no special type (ductal) . Histologic Grade ([place] Histologic Score) Glandular (Acinar)/Tubular Differentiation ___ Score 3 (<10% of tumor area forming glandular/tubular structures) . Nuclear Pleomorphism ___ Score 3 (vesicular nuclei, often with prominent nucleoli, exhibiting marked variation in size and shape, occasionally with very large and bizarre forms) . Mitotic Rate ___ Score 3 . Overall Grade ___ Grade 3 (scores of 8 or 9) . Ductal Carcinoma In Situ (DCIS) ___ Not identified . Lymphovascular Invasion ___ Not identified . Microcalcifications ___ Present in invasive carcinoma . Ancillary Studies Biomarker Studies ___ Pending on block A2. . (CLW:nereida; 02/11/2021) . . Clinical and radiographic correlation is required. The case is co-reviewed with Dr. Gómez who agrees on 02/11/21. The case will be discussed with Dr. Valencia and/or her office on 02/14/2021. (CLW:nereida; 02/11/2021) . 02 Electronically signed: . Rosina Da Silva MD, Pathologist NPI- [id number] . 01 Gross description: . The specimen is received in formalin, labeled "Isha Sparks, right breast 12:00 5 cm from nipple", received as multiple soft rice-yellow tissue cores measuring up to 1.9 cm x 0.2 cm. The specimen is entirely submitted A1-A3. The specimen is removed from the patient at 1330 hours and placed in formalin at 1332 hours on Sunday, February 09, 2021. The specimen is removed from formalin at 11:30pm. The specimen is in formalin for greater than 6 hours and less than 72 hours. ([facility]; 02/09/2021) M[facility]IN/MARTIN 02/09/2021 1654 Local . 02 Pathologist provided ICD-10: C50.911 . 02 CPT . 201959 Specimen Comment: A courtesy copy of this report has been sent to [phone] Specimen Comment: [phone] Specimen Comment: Report sent to / DR VALENCIA Performed at: 01 [facility] [address], [place] [id number] MD Terrence Granados MD Phone: [phone] Performed at: 02 [facility] [address] [id number] MD Rosina Da Silva MD Phone: [phone]
== END | disposition home or self-care (01) ==
LOC: US 12:35
PROVIDERS: ATTEND Internal Medicine
DX: N63.12 Unspecified lump in the right breast, upper inner quadrant (principal); R92.8 Other abnormal and inconclusive findings on diagnostic imaging of breast; I10 Essential (primary) hypertension; Z79.899 Other long term (current) drug therapy; Z98.890 Other specified postprocedural states; Z72.89 Other problems related to lifestyle; Z88.2 Allergy status to sulfonamides; Z88.8 Allergy status to other drugs, medicaments and biological substances
CPT/HCPCS: 19083; 77065; 88305; 88361; A4648; 76942

== ENCOUNTER → 2021-02-10 | Outpatient (CLI) | payer OTHER | LOC: SPEC 12:45 | PROVIDERS: ATTEND Nurse Practitioner Women's Health | DX: Z01.419 Encounter for gynecological examination (general) (routine) without abnormal findings (principal) | CPT/HCPCS: 88175 ==

== ENCOUNTER → 2021-02-18 | Outpatient (CLI) | payer OTHER ==
--- NOTE | 2021-02-18 08:38 | RAD ---
EXAM: Pelvic sonogram. HISTORY: Pain. TECHNIQUE: Sonographic imaging of the pelvis was performed. COMPARISON: None. FINDINGS: The uterus measures 9.0 x 4.2 x 3.6 cm. The endometrial stripe measures for MM. The ovaries are normal in size and demonstrate normal blood flow. There is no pelvic free fluid. IMPRESSION: Unremarkable pelvic sonogram. Electronically signed by: Taylor Demarco MD (02/18/2021 8:35 AM) [id number]
== END ==
LOC: US 10:08
PROVIDERS: ATTEND Nurse Practitioner Women's Health
DX: R10.2 Pelvic and perineal pain (principal)
CPT/HCPCS: 76830; 76856

== ENCOUNTER 2021-03-21 06:05 | Day surgery (SDC) | payer OTHER ==
[~2021-03-21] VITALS: Ht 175.3 cm; Wt 103.6 kg
[~2021-03-21 06:05] MED LIST changes: +HEPARIN SODIUM 5,000 UNIT in IV NORMAL SALINE 500ML BAG 500 ML IRR ONE; +HYDROmorphone 2 MG/ML VIAL IVP PRN; +IV RINGERS,LACTATED 1000ML 1,000 ML IV SCH; +MORPHINE SULFATE 2 MG/ML INJ. IVP PRN; +PROCHLORPERAZINE 10 MG/2 ML VIAL. IVP PRN; +fentaNYL PF VIAL 100 MCG/2 ML VIAL IVP PRN
[2021-03-21 06:21] VITALS: BP 144/71
[2021-03-21] MEDS ORDERED: fentaNYL PF VIAL 100 MCG/2 ML VIAL ONE (07:11)
[2021-03-21] MEDS ORDERED: BUPIVACAINE-EPI 0.5%-1:200000 MPF 30 ML VIAL. ONE (07:13)
[2021-03-21] MEDS ORDERED: MIDAZOLAM HCL/PF 2 MG/2 ML VIAL. ONE (07:34)
[2021-03-21] MEDS ORDERED: LIDOCAINE 2% PF 5 ML VIAL. ONE (07:38)
[2021-03-21] MEDS ORDERED: PROPOFOL 10 MG/ML (20ML) VIAL. IV ONE (07:38)
--- NOTE | 2021-03-21 08:49 | PDOC4 ---
Operative Note Operative Note Operative Note: Preoperative Diagnosis: Breast Cancer Postoperative Diagnosis: Same Procedure: Placement of Power Port-A-Cath using SonoSite guidance Surgeon: Torsten Cattyman: Cale MIMS Anesthesia: Gen. EBL: 10 mL Specimen: None Drains: None Complications: None Indication: The patient is a 55 year old female who was recently diagnosed with breast cancer. A request was made for placement of a Port-A-Cath to allow for chemotherapy treatment. The details and risks of the procedure were discussed. The risks include bleeding, infection, vessel injury, pneumothorax, pain, anesthetic risk, port, catheter or tubing malfunction or dysfunction, potential need for additional surgery or procedure. The patient understands and would like to proceed. Description: The patient was placed supine on the operating table and general anesthesia was performed. The bilateral neck and chest were prepped with ChloraPrep and draped in a standard surgical manner. Using the SonoSite we directed our attention to the left internal jugular vein. The vein on the left side was quite small while the IJ on the right was significantly larger. We attempted placement into the small left IJ however this was unsuccessful. We then moved to the right side. With SonoSite guidance entry was made into the right internal jugular vein with the skinny introducer needle. The skinny guidewire passed readily into the central venous system. A small incision was made at the skin exit site. The skinny sheath was then placed over the guidewire. The larger guidewire was then placed within the sheath into the central venous system. Intraoperative fluoroscopy confirmed good position of the guidewire in the central venous system. The dilator and sheath were then placed over the guidewire. The catheter portion was then inserted into the central venous system and visualized using fluoroscopy. A separate right upper chest skin incision was made with a scalpel. A subcutaneous pocket was developed with cautery of sufficient size to accommodate the port. The catheter was then tunneled subcutaneously to the level of the newly formed pocket. Using fluoroscopy the catheter was positioned with the tip in the distal superior vena cava. The catheter was then cut and assembled to the port. The port was then secured to the chest wall with two 2-0 Prolene sutures. Using the Oconnell needle the port readily aspirated and flushed without difficulty. Fluoroscopy confirmed good positioning of the catheter with no twists or kinks. The subcutaneous tissue was approximated with 3-0 Vicryl. The skin was then closed with 4-0 Monocryl. A sterile OpSite dressing was then applied. The patient tolerated the procedure well and was sent to the recovery room in stable condition. At the end of the case all counts were correct. JOHANNA HILLMAN MD Mar 21, 2021 08:49
--- NOTE | 2021-03-21 08:51 | DISCH ---
DISCHARGE INSTRUCTIONS Condition on Discharge Condition on Discharge: Stable Activity After Discharge Activity Instructions for Disc: Resume previous activity Diet after Discharge Diet after Discharge: Regular Wound Incision Care Wound/Incision Care: Other, see below (keep port dressing clean and dry) Follow-Up Follow up with: Oncology per appointment JOHANNA HILLMAN MD Mar 21, 2021 08:51
[2021-03-21] MEDS ORDERED: HYDR-2759 PO (09:13)
[2021-03-21 09:30] VITALS: BP 124/60
--- NOTE | 2021-03-21 11:40 | RAD ---
XR CHEST 1V Clinical Indication: Reason: portacath placement / Spl. Instructions: please do in PACU / History: Comparison: Two-view chest March 16, 2019. Findings: There is right chest Port-A-Cath, tip in mid SVC. The cardiomediastinal silhouette is normal. Linear opacity in the lateral left lung base may be atelectasis or scarring. There is irregular airspace opa city in the right midlung. There is no pneumothorax. No pleural effusion is appreciated. No acute bon e abnormality. IMPRESSION: 1. Right chest Port-A-Cath tip in mid SVC. No pneumothorax. 2. Irregular opacity in the right midlung may be airspace disease, pulmonary nodule is not excluded. Suggest radiographic follow-up. 3. Linear opacity in the left lung base may be atelectasis or scarring. Electronically signed by: Abelardo Kwan MD (03/21/2021 11:38 AM) [facility]
== END 2021-03-21 10:08 | disposition home or self-care (01) ==
LOC: SURG 06:05
PROVIDERS: ATTEND Surgery
DX: Z45.2 Encounter for adjustment and management of vascular access device (principal); C50.911 Malignant neoplasm of unspecified site of right female breast; Z79.899 Other long term (current) drug therapy; Z98.890 Other specified postprocedural states; Z88.1 Allergy status to other antibiotic agents; Z88.2 Allergy status to sulfonamides; Z72.89 Other problems related to lifestyle
CPT/HCPCS: 36561; 71045; 76937; 77001; A4364; A4930; A6254; A6258; A6402; C1788; C1892; J0690; J1644; J2250; J2704; J3010; J7040; 76000; A4452; A4657

== ENCOUNTER → 2021-03-24 | Outpatient (CLI) | payer OTHER ==
[2021-03-21 09:30] VITALS: BP 124/60
[~2021-03-24] MED LIST changes: -HEPARIN SODIUM 5,000 UNIT in IV NORMAL SALINE 500ML BAG 500 ML IRR ONE; +HYDR-2759 PO; -HYDROmorphone 2 MG/ML VIAL IVP PRN; -IV RINGERS,LACTATED 1000ML 1,000 ML IV SCH; -MORPHINE SULFATE 2 MG/ML INJ. IVP PRN; -PROCHLORPERAZINE 10 MG/2 ML VIAL. IVP PRN; -fentaNYL PF VIAL 100 MCG/2 ML VIAL IVP PRN
[2021-03-24 09:21] LABS: BASO % 1 % (0-3); EOS # 0.3 x10^3/uL (0.0-0.7); EOS % 4 % (0-3); HEMATOCRIT 39.5 % (36.0-47.0); HEMOGLOBIN 13.3 g/dL (12.0-15.5); LYMPH # 1.5 x10^3/uL (1.0-4.8); LYMPH % 21 % (24-48); MEAN CORPUSCULAR HEMOGLOBIN 29 pg (25-35); MEAN CORPUSCULAR HGB CONC 34 g/dL (31-37); MEAN CORPUSCULAR VOLUME 87 fL (79-100); MONO # 0.4 x10^3/uL (0.0-1.1); MONO % 6 % (0-9); NEUT % 69 % (31-73); PLATELET COUNT 227 x10^3/uL (140-400); RED BLOOD COUNT 4.54 x10^6/uL (3.50-5.40); WHITE BLOOD COUNT 7.2 x10^3/uL (4.0-11.0)
[2021-03-24 09:43] LABS: CALCIUM 8.8 mg/dL (8.5-10.1); CREATININE 0.8 mg/dL (0.6-1.0); GFR 74.5; POTASSIUM 3.7 mmol/L (3.5-5.1)
[2021-03-24 09:45] LABS: ALBUMIN 3.7 g/dL (3.4-5.0); ALBUMIN/GLOBULIN RATIO 1.3 (1.0-1.7); TOTAL BILIRUBIN 0.3 mg/dL (0.2-1.0); TOTAL PROTEIN 6.6 g/dL (6.4-8.2)
== END ==
LOC: ONCLAB 08:09
PROVIDERS: ATTEND Internal Medicine Hematology & Oncology
DX: C50.911 Malignant neoplasm of unspecified site of right female breast (principal)
CPT/HCPCS: 36415; 80053; 83615; 85025

== ENCOUNTER → 2021-03-31 | Outpatient (CLI) | payer OTHER ==
[2021-03-21 09:30] VITALS: BP 124/60
[2021-03-31 15:27] LABS: BASO # 0.1 x10^3/uL (0.0-0.2); BASO % 1 % (0-3); EOS # 0.2 x10^3/uL (0.0-0.7); EOS % 3 % (0-3); HEMATOCRIT 34.3 % (36.0-47.0); HEMOGLOBIN 11.5 g/dL (12.0-15.5); LYMPH # 1.3 x10^3/uL (1.0-4.8); LYMPH % 22 % (24-48); MEAN CORPUSCULAR HEMOGLOBIN 29 pg (25-35); MEAN CORPUSCULAR HGB CONC 34 g/dL (31-37); MEAN CORPUSCULAR VOLUME 87 fL (79-100); MONO # 0.7 x10^3/uL (0.0-1.1); MONO % 12 % (0-9); NEUT # 3.9 x10^3/uL (1.8-7.7); NEUT % 63 % (31-73); PLATELET COUNT 243 x10^3/uL (140-400); RED BLOOD COUNT 3.97 x10^6/uL (3.50-5.40); RED CELL DISTRIBUTION WIDTH 13.7 % (11.5-14.5); WHITE BLOOD COUNT 6.2 x10^3/uL (4.0-11.0)
[2021-03-31 15:37] LABS: CALCIUM 8.7 mg/dL (8.5-10.1); CREATININE 1.1 mg/dL (0.6-1.0); GFR 51.4; POTASSIUM 3.7 mmol/L (3.5-5.1)
[2021-03-31 15:42] LABS: ALBUMIN 3.5 g/dL (3.4-5.0); ALBUMIN/GLOBULIN RATIO 1.2 (1.0-1.7); TOTAL BILIRUBIN 0.3 mg/dL (0.2-1.0); TOTAL PROTEIN 6.5 g/dL (6.4-8.2)
[2021-03-31 18:21] LABS: % ATYL 2 % (0-0); % BANDS 16 % (0-9); % BASOS 2 % (0-3); % EOS 5 % (0-5); % LYMPHS 37 % (24-48); % MONOS 9 % (0-10); % PROS 1 % (0-0); % SEGS 28 % (35-66)
[2021-03-31 18:23] LABS: PLT ESTIMATE ADEQUATE (ADEQUATE); TOXIC GRANULATION MOD
== END ==
LOC: ONCLAB 13:01
PROVIDERS: ATTEND Physician Assistant
DX: C50.911 Malignant neoplasm of unspecified site of right female breast (principal)
CPT/HCPCS: 36415; 80053; 85007; 85025

== ENCOUNTER → 2021-04-05 | Outpatient (CLI) | payer OTHER ==
[2021-03-21 09:30] VITALS: BP 124/60
[~2021-04-05] MED LIST changes: +OXYC1TAB15 PO
--- NOTE | 2021-04-05 16:12 | RAD ---
EXAM: XR ABDOMEN 1V 04/05/2021 10:19 AM CLINICAL INDICATION: Ureteral calculi right side COMPARISON: CT abdomen pelvis 07/04/2017 TECHNIQUE: AP view of abdomen FINDINGS: No abnormal calcifications. Normal bowel gas pattern. Moderate volume of stool. Mild degen erative joint disease of the hips. IMPRESSION: No radiopaque urolithiasis visualized. Electronically signed by: Olivia Scott MD (04/05/2021 4:09 PM) [id number]
== END ==
LOC: LAB 09:37
PROVIDERS: ATTEND Urology
DX: N20.1 Calculus of ureter (principal); M16.0 Bilateral primary osteoarthritis of hip
CPT/HCPCS: 74018

== ENCOUNTER → 2021-04-07 | Outpatient (CLI) | payer OTHER ==
[2021-03-21 09:30] VITALS: BP 124/60
[~2021-04-07] MED LIST changes: -OXYC1TAB15 PO
[2021-04-07 15:35] LABS: BASO % 0 % (0-3); EOS % 0 % (0-3); HEMATOCRIT 37.1 % (36.0-47.0); HEMOGLOBIN 12.3 g/dL (12.0-15.5); LYMPH # 1.1 x10^3/uL (1.0-4.8); LYMPH % 9 % (24-48); MEAN CORPUSCULAR HEMOGLOBIN 29 pg (25-35); MEAN CORPUSCULAR HGB CONC 33 g/dL (31-37); MEAN CORPUSCULAR VOLUME 87 fL (79-100); MONO # 0.5 x10^3/uL (0.0-1.1); MONO % 4 % (0-9); NEUT # 10.5 x10^3/uL (1.8-7.7); NEUT % 86 % (31-73); PLATELET COUNT 257 x10^3/uL (140-400); RED BLOOD COUNT 4.25 x10^6/uL (3.50-5.40); RED CELL DISTRIBUTION WIDTH 14.5 % (11.5-14.5); WHITE BLOOD COUNT 12.1 x10^3/uL (4.0-11.0)
[2021-04-07 15:52] LABS: CALCIUM 8.8 mg/dL (8.5-10.1); CREATININE 0.8 mg/dL (0.6-1.0); GFR 74.2; POTASSIUM 3.7 mmol/L (3.5-5.1)
[2021-04-07 15:58] LABS: ALBUMIN 3.7 g/dL (3.4-5.0); ALBUMIN/GLOBULIN RATIO 1.2 (1.0-1.7); TOTAL BILIRUBIN 0.2 mg/dL (0.2-1.0); TOTAL PROTEIN 6.8 g/dL (6.4-8.2)
[2021-04-07 16:01] LABS: % BANDS 12 % (0-9); % LYMPHS 10 % (24-48); % MONOS 6 % (0-10); % SEGS 72 % (35-66); PLT ESTIMATE ADEQUATE (ADEQUATE); TOXIC GRANULATION SLIGHT
== END ==
LOC: ONCLAB 14:58
PROVIDERS: ATTEND Physician Assistant
DX: C50.911 Malignant neoplasm of unspecified site of right female breast (principal)
CPT/HCPCS: 36415; 80053; 85007; 85025

== ENCOUNTER → 2021-04-14 | Outpatient (CLI) | payer OTHER ==
[2021-03-21 09:30] VITALS: BP 124/60
[2021-04-14 09:08] LABS: BASO # 0.1 x10^3/uL (0.0-0.2); BASO % 1 % (0-3); EOS % 1 % (0-3); HEMOGLOBIN 12.2 g/dL (12.0-15.5); LYMPH # 1.1 x10^3/uL (1.0-4.8); LYMPH % 18 % (24-48); MEAN CORPUSCULAR HEMOGLOBIN 29 pg (25-35); MEAN CORPUSCULAR HGB CONC 33 g/dL (31-37); MEAN CORPUSCULAR VOLUME 88 fL (79-100); MONO # 0.4 x10^3/uL (0.0-1.1); MONO % 7 % (0-9); NEUT # 4.4 x10^3/uL (1.8-7.7); NEUT % 73 % (31-73); PLATELET COUNT 278 x10^3/uL (140-400); RED CELL DISTRIBUTION WIDTH 14.7 % (11.5-14.5); WHITE BLOOD COUNT 6.1 x10^3/uL (4.0-11.0)
[2021-04-14 09:27] LABS: ALBUMIN 3.3 g/dL (3.4-5.0); ALBUMIN/GLOBULIN RATIO 1.1 (1.0-1.7); CALCIUM 8.6 mg/dL (8.5-10.1); CREATININE 0.7 mg/dL (0.6-1.0); GFR 86.6; TOTAL BILIRUBIN 0.5 mg/dL (0.2-1.0); TOTAL PROTEIN 6.4 g/dL (6.4-8.2)
[2021-04-14 09:30] LABS: POTASSIUM 3.3 mmol/L (3.5-5.1)
[2021-04-14 10:49] LABS: MAGNESIUM 1.9 mg/dL (1.8-2.4)
== END ==
LOC: ONCLAB 08:30
PROVIDERS: ATTEND Physician Assistant
DX: C50.911 Malignant neoplasm of unspecified site of right female breast (principal)
CPT/HCPCS: 36415; 80053; 83735; 85025

== ENCOUNTER → 2021-04-21 | Outpatient (CLI) | payer OTHER ==
[2021-04-21 10:42] LABS: BASO # 0.1 x10^3/uL (0.0-0.2); BASO % 1 % (0-3); EOS # 0.3 x10^3/uL (0.0-0.7); EOS % 5 % (0-3); HEMOGLOBIN 11.4 g/dL (12.0-15.5); LYMPH # 1.1 x10^3/uL (1.0-4.8); LYMPH % 19 % (24-48); MEAN CORPUSCULAR HEMOGLOBIN 29 pg (25-35); MEAN CORPUSCULAR HGB CONC 34 g/dL (31-37); MEAN CORPUSCULAR VOLUME 88 fL (79-100); MONO # 0.8 x10^3/uL (0.0-1.1); MONO % 15 % (0-9); NEUT # 3.3 x10^3/uL (1.8-7.7); NEUT % 59 % (31-73); PLATELET COUNT 221 x10^3/uL (140-400); RED BLOOD COUNT 3.89 x10^6/uL (3.50-5.40); RED CELL DISTRIBUTION WIDTH 15.1 % (11.5-14.5); WHITE BLOOD COUNT 5.6 x10^3/uL (4.0-11.0)
[2021-04-21 10:43] LABS: CALCIUM 9.1 mg/dL (8.5-10.1); CREATININE 0.8 mg/dL (0.6-1.0); GFR 74.2; POTASSIUM 3.8 mmol/L (3.5-5.1)
[2021-04-21 10:49] LABS: ALBUMIN 3.2 g/dL (3.4-5.0); ALBUMIN/GLOBULIN RATIO 1.1 (1.0-1.7); TOTAL BILIRUBIN 0.4 mg/dL (0.2-1.0); TOTAL PROTEIN 6.1 g/dL (6.4-8.2)
[2021-04-21 12:53] LABS: % BANDS 13 % (0-9); % EOS 4 % (0-5); % LYMPHS 29 % (24-48); % MONOS 4 % (0-10); % MYELOS 8 % (0-0); % SEGS 42 % (35-66); NUCLEATED RBC 1; PLT ESTIMATE ADEQUATE (ADEQUATE)
== END ==
LOC: ONCLAB 10:16
PROVIDERS: ATTEND Internal Medicine Hematology & Oncology
DX: C50.911 Malignant neoplasm of unspecified site of right female breast (principal)
CPT/HCPCS: 36415; 80053; 85007; 85025

== ENCOUNTER → 2021-04-28 | Outpatient (CLI) | payer OTHER ==
[2021-04-28 14:50] LABS: BASO # 0.1 x10^3/uL (0.0-0.2); BASO % 1 % (0-3); EOS # 0.1 x10^3/uL (0.0-0.7); EOS % 2 % (0-3); HEMATOCRIT 36.4 % (36.0-47.0); HEMOGLOBIN 11.9 g/dL (12.0-15.5); LYMPH # 0.8 x10^3/uL (1.0-4.8); LYMPH % 12 % (24-48); MEAN CORPUSCULAR HEMOGLOBIN 29 pg (25-35); MEAN CORPUSCULAR HGB CONC 33 g/dL (31-37); MEAN CORPUSCULAR VOLUME 88 fL (79-100); MONO # 0.3 x10^3/uL (0.0-1.1); MONO % 5 % (0-9); NEUT # 5.6 x10^3/uL (1.8-7.7); NEUT % 81 % (31-73); PLATELET COUNT 193 x10^3/uL (140-400); RED BLOOD COUNT 4.13 x10^6/uL (3.50-5.40); RED CELL DISTRIBUTION WIDTH 15.3 % (11.5-14.5); WHITE BLOOD COUNT 6.9 x10^3/uL (4.0-11.0)
[2021-04-28 14:59] LABS: CALCIUM 8.9 mg/dL (8.5-10.1); CREATININE 0.9 mg/dL (0.6-1.0); GFR 64.8; POTASSIUM 3.6 mmol/L (3.5-5.1)
[2021-04-28 15:05] LABS: ALBUMIN 3.5 g/dL (3.4-5.0); ALBUMIN/GLOBULIN RATIO 1.1 (1.0-1.7); TOTAL BILIRUBIN 0.3 mg/dL (0.2-1.0); TOTAL PROTEIN 6.6 g/dL (6.4-8.2)
== END ==
LOC: ONCLAB 11:59
PROVIDERS: ATTEND Physician Assistant
DX: C50.911 Malignant neoplasm of unspecified site of right female breast (principal)
CPT/HCPCS: 36415; 80053; 85025

== ENCOUNTER → 2021-05-05 | Outpatient (CLI) | payer OTHER ==
[2021-05-05 08:51] LABS: BASO # 0.1 x10^3/uL (0.0-0.2); BASO % 1 % (0-3); EOS # 0.1 x10^3/uL (0.0-0.7); EOS % 1 % (0-3); HEMATOCRIT 33.8 % (36.0-47.0); HEMOGLOBIN 11.3 g/dL (12.0-15.5); LYMPH # 0.7 x10^3/uL (1.0-4.8); LYMPH % 13 % (24-48); MEAN CORPUSCULAR HEMOGLOBIN 29 pg (25-35); MEAN CORPUSCULAR HGB CONC 33 g/dL (31-37); MEAN CORPUSCULAR VOLUME 87 fL (79-100); MONO # 0.4 x10^3/uL (0.0-1.1); MONO % 7 % (0-9); NEUT # 4.2 x10^3/uL (1.8-7.7); NEUT % 78 % (31-73); PLATELET COUNT 219 x10^3/uL (140-400); RED BLOOD COUNT 3.87 x10^6/uL (3.50-5.40); RED CELL DISTRIBUTION WIDTH 15.6 % (11.5-14.5); WHITE BLOOD COUNT 5.4 x10^3/uL (4.0-11.0)
[2021-05-05 09:02] LABS: CALCIUM 8.8 mg/dL (8.5-10.1); CREATININE 0.8 mg/dL (0.6-1.0); GFR 74.2; POTASSIUM 3.8 mmol/L (3.5-5.1)
[2021-05-05 09:07] LABS: ALBUMIN 3.3 g/dL (3.4-5.0); ALBUMIN/GLOBULIN RATIO 1.1 (1.0-1.7); TOTAL BILIRUBIN 0.4 mg/dL (0.2-1.0); TOTAL PROTEIN 6.3 g/dL (6.4-8.2)
== END ==
LOC: ONCLAB 08:28
PROVIDERS: ATTEND Internal Medicine Hematology & Oncology
DX: C50.911 Malignant neoplasm of unspecified site of right female breast (principal)
CPT/HCPCS: 36415; 80053; 85025

== ENCOUNTER → 2021-05-12 | Outpatient (CLI) | payer OTHER ==
[2021-05-12 14:04] LABS: BASO # 0.1 x10^3/uL (0.0-0.2); BASO % 1 % (0-3); EOS # 0.2 x10^3/uL (0.0-0.7); EOS % 4 % (0-3); HEMATOCRIT 31.8 % (36.0-47.0); HEMOGLOBIN 10.7 g/dL (12.0-15.5); LYMPH # 0.9 x10^3/uL (1.0-4.8); LYMPH % 17 % (24-48); MEAN CORPUSCULAR HEMOGLOBIN 30 pg (25-35); MEAN CORPUSCULAR HGB CONC 34 g/dL (31-37); MEAN CORPUSCULAR VOLUME 88 fL (79-100); MONO # 0.7 x10^3/uL (0.0-1.1); MONO % 12 % (0-9); NEUT # 3.5 x10^3/uL (1.8-7.7); NEUT % 65 % (31-73); PLATELET COUNT 251 x10^3/uL (140-400); RED BLOOD COUNT 3.61 x10^6/uL (3.50-5.40); RED CELL DISTRIBUTION WIDTH 15.8 % (11.5-14.5); WHITE BLOOD COUNT 5.4 x10^3/uL (4.0-11.0)
[2021-05-12 14:30] LABS: CALCIUM 9.1 mg/dL (8.5-10.1); CREATININE 0.8 mg/dL (0.6-1.0); GFR 74.2; POTASSIUM 3.5 mmol/L (3.5-5.1)
[2021-05-12 14:41] LABS: ALBUMIN 3.5 g/dL (3.4-5.0); ALBUMIN/GLOBULIN RATIO 1.2 (1.0-1.7); TOTAL BILIRUBIN 0.3 mg/dL (0.2-1.0); TOTAL PROTEIN 6.5 g/dL (6.4-8.2)
[2021-05-12 17:25] LABS: % BANDS 13 % (0-9); % EOS 6 % (0-5); % LYMPHS 14 % (24-48); % METAS 1 % (0-0); % MONOS 14 % (0-10); % MYELOS 5 % (0-0); % SEGS 47 % (35-66)
[2021-05-12 17:26] LABS: PLT ESTIMATE ADEQUATE (ADEQUATE); POLYCHROMASIA SLIGHT
== END ==
LOC: ONCLAB 12:40
PROVIDERS: ATTEND Physician Assistant
DX: C50.911 Malignant neoplasm of unspecified site of right female breast (principal)
CPT/HCPCS: 36415; 80053; 85007; 85025

== ENCOUNTER → 2021-05-26 | Outpatient (CLI) | payer OTHER ==
[2021-05-26 08:46] LABS: CALCIUM 8.7 mg/dL (8.5-10.1); CREATININE 0.7 mg/dL (0.6-1.0); GFR 86.6; POTASSIUM 3.9 mmol/L (3.5-5.1)
[2021-05-26 08:53] LABS: ALBUMIN 3.2 g/dL (3.4-5.0); ALBUMIN/GLOBULIN RATIO 1.1 (1.0-1.7); BASO # 0.1 x10^3/uL (0.0-0.2); BASO % 1 % (0-3); EOS # 0.1 x10^3/uL (0.0-0.7); EOS % 1 % (0-3); HEMATOCRIT 32.4 % (36.0-47.0); HEMOGLOBIN 10.8 g/dL (12.0-15.5); LYMPH # 0.6 x10^3/uL (1.0-4.8); LYMPH % 14 % (24-48); MEAN CORPUSCULAR HEMOGLOBIN 30 pg (25-35); MEAN CORPUSCULAR HGB CONC 34 g/dL (31-37); MEAN CORPUSCULAR VOLUME 88 fL (79-100); MONO # 0.4 x10^3/uL (0.0-1.1); MONO % 8 % (0-9); NEUT # 3.3 x10^3/uL (1.8-7.7); NEUT % 75 % (31-73); PLATELET COUNT 228 x10^3/uL (140-400); RED BLOOD COUNT 3.68 x10^6/uL (3.50-5.40); RED CELL DISTRIBUTION WIDTH 16.7 % (11.5-14.5); TOTAL BILIRUBIN 0.3 mg/dL (0.2-1.0); TOTAL PROTEIN 6.1 g/dL (6.4-8.2); WHITE BLOOD COUNT 4.4 x10^3/uL (4.0-11.0)
== END ==
LOC: ONCLAB 08:05
PROVIDERS: ATTEND Physician Assistant
DX: C50.911 Malignant neoplasm of unspecified site of right female breast (principal)
CPT/HCPCS: 36415; 80053; 85025

== ENCOUNTER → 2021-06-09 | Outpatient (CLI) | payer OTHER ==
[2021-06-09 14:15] LABS: BASO # 0.1 x10^3/uL (0.0-0.2); BASO % 1 % (0-3); EOS # 0.1 x10^3/uL (0.0-0.7); EOS % 2 % (0-3); HEMATOCRIT 34.2 % (36.0-47.0); HEMOGLOBIN 11.9 g/dL (12.0-15.5); LYMPH # 0.8 x10^3/uL (1.0-4.8); LYMPH % 10 % (24-48); MEAN CORPUSCULAR HEMOGLOBIN 31 pg (25-35); MEAN CORPUSCULAR HGB CONC 35 g/dL (31-37); MEAN CORPUSCULAR VOLUME 88 fL (79-100); MONO # 0.4 x10^3/uL (0.0-1.1); MONO % 6 % (0-9); NEUT # 6.6 x10^3/uL (1.8-7.7); NEUT % 82 % (31-73); PLATELET COUNT 257 x10^3/uL (140-400); RED BLOOD COUNT 3.87 x10^6/uL (3.50-5.40); RED CELL DISTRIBUTION WIDTH 16.7 % (11.5-14.5); WHITE BLOOD COUNT 8.1 x10^3/uL (4.0-11.0)
[2021-06-09 14:28] LABS: CALCIUM 8.7 mg/dL (8.5-10.1); CREATININE 0.9 mg/dL (0.6-1.0); GFR 64.8; POTASSIUM 3.9 mmol/L (3.5-5.1)
[2021-06-09 14:34] LABS: ALBUMIN 3.5 g/dL (3.4-5.0); ALBUMIN/GLOBULIN RATIO 1.2 (1.0-1.7); TOTAL BILIRUBIN 0.3 mg/dL (0.2-1.0); TOTAL PROTEIN 6.4 g/dL (6.4-8.2)
== END ==
LOC: ONCLAB 13:27
PROVIDERS: ATTEND Internal Medicine Hematology & Oncology
DX: C50.911 Malignant neoplasm of unspecified site of right female breast (principal)
CPT/HCPCS: 36415; 80053; 85025

== ENCOUNTER → 2021-07-04 | Outpatient (CLI) | payer OTHER ==
[2021-07-04 08:46] LABS: CALCIUM 8.8 mg/dL (8.5-10.1); CREATININE 0.8 mg/dL (0.6-1.0); GFR 74.2; POTASSIUM 3.6 mmol/L (3.5-5.1)
[2021-07-04 08:52] LABS: ALBUMIN 3.5 g/dL (3.4-5.0); ALBUMIN/GLOBULIN RATIO 1.1 (1.0-1.7); BASO % 1 % (0-3); EOS # 0.3 x10^3/uL (0.0-0.7); EOS % 7 % (0-3); HEMATOCRIT 37.4 % (36.0-47.0); HEMOGLOBIN 12.5 g/dL (12.0-15.5); LYMPH # 0.8 x10^3/uL (1.0-4.8); LYMPH % 19 % (24-48); MEAN CORPUSCULAR HEMOGLOBIN 30 pg (25-35); MEAN CORPUSCULAR HGB CONC 34 g/dL (31-37); MEAN CORPUSCULAR VOLUME 89 fL (79-100); MONO # 0.3 x10^3/uL (0.0-1.1); MONO % 6 % (0-9); NEUT # 2.9 x10^3/uL (1.8-7.7); NEUT % 66 % (31-73); PLATELET COUNT 254 x10^3/uL (140-400); RED BLOOD COUNT 4.19 x10^6/uL (3.50-5.40); RED CELL DISTRIBUTION WIDTH 15.4 % (11.5-14.5); TOTAL BILIRUBIN 0.4 mg/dL (0.2-1.0); TOTAL PROTEIN 6.7 g/dL (6.4-8.2); WHITE BLOOD COUNT 4.3 x10^3/uL (4.0-11.0)
== END ==
LOC: ONCLAB 08:10
PROVIDERS: ATTEND Internal Medicine Hematology & Oncology
DX: C50.911 Malignant neoplasm of unspecified site of right female breast (principal)
CPT/HCPCS: 36415; 80053; 85025

== ENCOUNTER → 2021-07-05 | Outpatient (CLI) | payer OTHER ==
[~2021-07-05] MED LIST changes: +GADOTERATE 7.5 MMOL/15ML VIAL. IVP ONE
--- NOTE | 2021-07-05 11:26 | RAD ---
EXAM: Brain MRI with and without contrast. HISTORY: Dizziness. Breast cancer. TECHNIQUE: Multiplanar, multisequence magnetic resonance imaging of the brain was performed prior to and following the administration of intravenous contrast. COMPARISON: None. FINDINGS: There is no restricted diffusion to suggest acute or subacute infarction. There is no susce ptibility effect to suggest hemorrhage. There is no mass effect or midline shift. There is no hydroce phalus. There is no suspicious white matter lesion. The orbits are unremarkable. There are small righ t maxillary sinus mucous retention cyst. The mastoid air cells are clear. There are normal flow voids within the cerebral vessels. There is no suspicious calvarial lesion. There is no suspicious enhanci ng lesion. IMPRESSION: No acute intracranial finding. Electronically signed by: Taylor Demarco MD (07/05/2021 11:24 AM) [id number]
== END ==
LOC: MRI 09:31
PROVIDERS: ATTEND Internal Medicine Hematology & Oncology
DX: C50.911 Malignant neoplasm of unspecified site of right female breast (principal)
CPT/HCPCS: 70553; A9575

== ENCOUNTER → 2021-07-12 | Outpatient (CLI) | payer OTHER ==
[~2021-07-12] MED LIST changes: -GADOTERATE 7.5 MMOL/15ML VIAL. IVP ONE; +OXYC1TAB15 PO
[2021-07-12 09:35] LABS: BASO % 1 % (0-3); EOS # 0.2 x10^3/uL (0.0-0.7); EOS % 5 % (0-3); HEMATOCRIT 37.9 % (36.0-47.0); HEMOGLOBIN 12.8 g/dL (12.0-15.5); LYMPH # 0.8 x10^3/uL (1.0-4.8); LYMPH % 18 % (24-48); MEAN CORPUSCULAR HEMOGLOBIN 30 pg (25-35); MEAN CORPUSCULAR HGB CONC 34 g/dL (31-37); MEAN CORPUSCULAR VOLUME 88 fL (79-100); MONO # 0.3 x10^3/uL (0.0-1.1); MONO % 7 % (0-9); NEUT % 69 % (31-73); PLATELET COUNT 211 x10^3/uL (140-400); RED BLOOD COUNT 4.29 x10^6/uL (3.50-5.40); WHITE BLOOD COUNT 4.4 x10^3/uL (4.0-11.0)
[2021-07-12 09:55] LABS: CALCIUM 8.5 mg/dL (8.5-10.1); CREATININE 0.6 mg/dL (0.6-1.0); GFR 103.4; POTASSIUM 3.6 mmol/L (3.5-5.1)
[2021-07-12 09:57] LABS: ALBUMIN 3.5 g/dL (3.4-5.0); ALBUMIN/GLOBULIN RATIO 1.2 (1.0-1.7); TOTAL BILIRUBIN 0.3 mg/dL (0.2-1.0); TOTAL PROTEIN 6.5 g/dL (6.4-8.2)
== END ==
LOC: ONCLAB 09:04
PROVIDERS: ATTEND Internal Medicine Hematology & Oncology
DX: C50.911 Malignant neoplasm of unspecified site of right female breast (principal)
CPT/HCPCS: 36415; 80053; 85025

== ENCOUNTER 2021-07-13 07:44 | Observation (INO) | payer OTHER ==
[2021-07-13] VITALS (9 sets, daily range): BP systolic 120–134; BP diastolic 60–83
[~2021-07-13] VITALS: Ht 175.3 cm; Wt 97.0 kg
[~2021-07-13 07:44] MED LIST changes: +LIDOCAINE 1% Multi-Dose 20 ML VIAL. INJ ONE; +LIDOCAINE 1% Multi-Dose 20 ML VIAL. ONE; -OXYC1TAB15 PO
[2021-07-13] MEDS ORDERED: BUPIVACAINE-EPI 0.5% 30 ML VIAL KIT. ONE (11:01)
[2021-07-13] MEDS ORDERED: ISOSULFAN BLUE 1% 50 MG/5 ML VIAL. SQ ONE (11:01)
[2021-07-13] MEDS ORDERED: LIDOCAINE 1%/EPI 1:100,000 20 ML VIAL. ONE (11:02)
[2021-07-13] MEDS ORDERED: fentaNYL PF VIAL 100 MCG/2 ML VIAL ONE ×2 (11:36→14:08)
[2021-07-13] MEDS ORDERED: PHENYLEPHRINE in 0.9% NACL PF 1 MG/10 ML SYRINGE. IV ONE (12:34)
[2021-07-13] MEDS ORDERED: LIDOCAINE 2% PF 5 ML VIAL. ONE (12:35)
[2021-07-13] MEDS ORDERED: PROPOFOL 10 MG/ML (20ML) VIAL. IV ONE (12:35)
[2021-07-13] MEDS ORDERED: DEXAMETHASONE SOD PHOS 4 MG/ML VIAL ONE (12:35)
[2021-07-13] MEDS ORDERED: ONDANSETRON PF 4 MG/2 ML VIAL. ONE (12:35)
--- NOTE | 2021-07-13 13:36 | RAD ---
EXAM: 1. RIGHT BREAST ULTRASOUND-GUIDED NEEDLE LOCALIZATION. 2. POST LOCALIZATION DIGITAL RIGHT MAMMOGRAPHY. 3. SPECIMEN RADIOGRAPH. 4. RIGHT BREAST INJECTION FOR LYMPHOSCINTIGRAPHY. HISTORY: Right breast cancer. Needle localization and lymphoscintigraphy injection are requested. FINDINGS: The procedure along with its risks and benefits were explained to the patient. She agreed t o proceed. A timeout procedure was performed. The treated mass and postbiopsy clip in the right breast at the 12:00 position 5 cm from the nipple w as visualized sonographically. The overlying skin was sterilely prepped and infiltrated with 1% lidoc francy for local anesthesia. Under ultrasound guidance, a needle-hook wire system was advanced through the target lesion. The wire was deployed and the needle withdrawn. The wire was fixed in place. There were no immediate complications. The skin about the right areola was sterilely prepped. Tc-99m Tilmanocept was injected intradermally in 4 sites about the right areola. Post localization right mammography was performed and interpreted on a dedicated workstation. The loc alization wire corresponds with the target lesion. The specimen radiograph demonstrates the clip and target lesion in the specimen. IMPRESSION: 1. Successful right breast ultrasound-guided needle localization. 2. The specimen radiograph demonstrates the clip and target lesion in the specimen. 3. Successful right breast injection for lymphoscintigraphy. Electronically signed by: Claus Shah MD (07/13/2021 1:33 PM) [id number]
--- NOTE | 2021-07-13 14:35 | PDOC4 ---
Operative Note Operative Note Operative Note: Preoperative Diagnosis: Right breast cancer Postoperative Diagnosis: Same Procedure: Right lumpectomy with wire localization, right axillary sentinel lymph node biopsy, right axillary dissection, removal of Port-A-Cath Surgeon: Torsten Teacher [employer]: FELICITA Church Anesthesia: General EBL: 75 mL Specimen: [place] lymph nodes one through four to pathology, right lumpectomy short stitch superficial, long stitch lateral to pathology; additional superior, inferior, medial, lateral margins to pathology; Port-A-Cath to pathology Drains: None Complications: None Indication: The patient is a 56-year-old female who was recently diagnosed with right breast cancer. Her preoperative testing suggested a sizable area of involvement at the 12:00 location of the breast. To facilitate possible breast conservation she underwent neoadjuvant chemotherapy. A post therapy MRI showed marked regression of the tumor. She is interested in breast conservation and therefore we plan to attempt a lumpectomy with wire localization. We will include a sentinel lymph node biopsy and she is aware that an axillary dissection may be necessary. Risks of surgery were discussed which include bleeding, infection, scar tissue, wound healing problems, pain, anesthetic risk, potential need for additional surgery procedure. She understands and would like to proceed. Description: The patient was initially taken to radiology where she underwent wire localization and injection of technetium sulfur colloid. The patient was then taken to the operating room and placed supine on the operating table. General anesthesia was performed. The right breast and axilla were prepped with ChloraPrep and draped in a standard surgical manner. Five mL of Lymphazurin were injected deep to the nipple areolar complex. Several minutes were allowed for progression of the dye In the meantime a small incision was made at the site of the prior Port-A-Cath scar. Cautery dissection was carried down to the capsule. The capsule was opened and the attaching sutures were cut. The port and catheter were then readily retrieved and sent to pathology for gross evaluation. The catheter tract was oversewn with 3-0 Vicryl. The subcutaneous tissue was closed with 3-0 Vicryl and skin approximated with 4-0 Monocryl. A small incision was then made in the right axilla. Cautery dissection was carried down into the axillary tissues. The axilla was evaluated using the C- Trak probe. There were four areas of increased nuclear uptake corresponding to sentinel lymph nodes. Each one was sequentially harvested and sent to pathology. Frozen section evaluation of the first sentinel lymph node did confirm metastatic involvement. While waiting for those results we proceeded with the lumpectomy. An incision was made superior to the nipple at the expected location of the tumor. Cautery dissection was carried out into the breast parenchyma. The wire was identified entering laterally. With cautery a generous sized lumpectomy specimen was mobilized circumferentially from the surrounding breast parenchyma. The margins of the specimen were taken all the way down to the pectoralis muscle. The superficial margin was marked with a short silk suture and the lateral margin was marked with a long silk suture. In a medial to lateral fashion the specimen was taken off of the chest wall and sent for radiographs. Specimen radiographs confirmed the presence of the wire and clip. We did elect to remove additional margins from the lumpectomy cavity which were taken from the superior, inferior, medial, lateral locations. Each was separately labeled and sent to pathology. Hemostasis was achieved with cautery. We then returned to the axilla for an axillary dissection. The incision was extended some with a scalpel. The boundaries of the axillary dissection included the axillary vein superiorly, the pectoralis muscle medially, and the latissimus muscle laterally. Both the long thoracic and thoracodorsal nerves were readily identified and preserved. In a superior to inferior manner the remaining lymphoadipose tissue was freed from the radford rrounding structures. A couple of vessel supplying the axillary contents were ligated with 2-0 Vicryl and divided. The axillary contents were then fully excised and sent to pathology. Hemostasis was good. The subcutaneous tissue of both incisions was closed with 3-0 Vicryl and skin was approximated with 4-0 Monocryl. Sterile dressings were then applied. The patient tolerated the procedure well and was sent to the recovery room in stable condition. At the end of the case all counts were correct. JOHANNA HILLMAN MD Jul 13, 2021 14:35
[2021-07-13] MEDS ORDERED: IV NORMAL SALINE 1000ML BAG 1,000 ML IV SCH (14:45)
[2021-07-13] MEDS ORDERED: 0.9 % SODIUM CHLORIDE 10 ML DISP.SYRIN. IV PRN (14:45)
[2021-07-13] MEDS ORDERED: NALOXONE 0.4 MG/ML VIAL. IV PRN (14:45)
[2021-07-13] MEDS ORDERED: oxyCODONE/APAP 5/325 1 TAB TABLET PO PRN ×2 (14:45)
[2021-07-13] MEDS ORDERED: HYDROmorphone 2 MG/ML VIAL IV PRN (14:45)
[2021-07-13] MEDS ORDERED: ONDANSETRON PF 4 MG/2 ML VIAL. IVP PRN (14:45)
[2021-07-13] MEDS ORDERED: MORPHINE SULFATE 2 MG/ML INJ. ONE (14:47)
[2021-07-13] MEDS: MORPHINE SULFATE 2 MG/ML INJ. IVP PRN ×2 (14:52→15:04)
[2021-07-13] MEDS ORDERED: HYDROmorphone 2 MG/ML VIAL ONE (14:59)
[2021-07-13] MEDS ORDERED: PROCHLORPERAZINE 10 MG/2 ML VIAL. IVP PRN (15:00)
[2021-07-13] MEDS ORDERED: IV RINGERS,LACTATED 1000ML 1,000 ML IV SCH (15:00)
[2021-07-13] MEDS ORDERED: fentaNYL PF VIAL 100 MCG/2 ML VIAL IVP PRN ×2 (15:00)
[2021-07-13] MEDS ORDERED: PROCHLORPERAZINE 10 MG/2 ML VIAL. ONE (15:02)
[2021-07-13] MEDS ORDERED: HYDROmorphone 2 MG/ML VIAL IVP ONE (15:15)
[2021-07-13] MEDS: IV 1/2 NORMAL SALINE 1,000 ML IV SCH (17:00)
[2021-07-14 02:05] VITALS: BP 119/82
[2021-07-14] MEDS: IV 1/2 NORMAL SALINE 1,000 ML IV SCH (02:42)
--- NOTE | 2021-07-14 08:00 | NUR ---
RESTS IN BED DENIES PAIN AT THIS TIME. RIGHT ARM ELEVATED ON PILLOW. READY TO GO HOME. AWAITING DOCTOR. DRESSINGS TO RIGHT CHEST CLEAN DRY AND INTACT
--- NOTE | 2021-07-14 09:47 | PDOC ---
SURGICAL PROGRESS NOTE DATE: 07/14/21 TIME: 09:46 Subjective doing well minimal pain tolerating diet Vital Signs Vital Signs Date Time Temp Pulse Resp B/P (MAP) Pulse Ox O2 Delivery O2 Flow Rate FiO2 07/14/21 07:25 Room Air 07/14/21 02:33 93 07/14/21 02:05 98.6 111 18 119/82 (94) 98.6 07/13/21 23:14 2.0 I&O Intake and Output 07/14/21 07:00 Intake Total 3656 ml Output Total 2975 ml Balance 681 ml Intake Oral 1160 ml IV Total 2496 ml Output Urine Total 2900 ml Estimated Blood Loss 75 ml # Voids 1 General: Alert, Oriented X3, Cooperative Abdomen: Soft Skin: Other (dressings dry) Labs Laboratory Tests Test 07/13/21 16:42 Glucose (Fingerstick) 168 mg/dL (70-99) Laboratory Tests Test 07/13/21 16:42 Glucose (Fingerstick) 168 mg/dL (70-99) Problem List home fu 1week Justicifation of Admission Dx: Justifications for Admission: Justification of Admission Dx: Yes Comments: breast cancer RODRIGUE MXI APRN Jul 14, 2021 09:47
--- NOTE | 2021-07-14 09:49 | DISCH ---
DISCHARGE INSTRUCTIONS Condition on Discharge Condition on Discharge: Stable Activity After Discharge Activity Instructions for Disc: Resume previous activity Bathing Instructions: Shower-keep dressing dry Lifting Instructions after Dis: No heavy lifting Driving Instructions after Dis: Do not drive today Diet after Discharge Diet after Discharge: Regular Wound Incision Care Wound/Incision Care: Do not change dressing Contacting the after DC Call your doctor for: Concerns you may have Follow-Up Follow up with: Dr Sarmiento 07/21 at [facility] office([place]), questions call [phone] RODRIGUE MIX APRN Jul 14, 2021 09:49
[2021-07-14] MEDS ORDERED: OXYC1TAB15 PO (09:51)
--- NOTE | 2021-07-14 10:30 | NUR ---
READY TO GO. ORDER FOR OUTPATIENT FAXED TO OP SCHEDULING. SPOKE WITH UNHAIRING INSPECTOR AND SHE WANTED THE ORDER FAXED SENT WITH CONFIRMATION. ORIGINAL GIVEN TO PATIENT COPY PLACED IN CHART.
--- NOTE | 2021-07-14 10:40 | NUR ---
REVIEWED WRITTEN DISCHARGE INSTRUCTIONS WITH KATIE. ORIGINAL FAX AND CONFIRMATION GIVEN TO HER AFTER FAXING ; VERBALIZED UNDERSTANDING OF DISCHARGE INSTRUCTIONS. UNDERSTANDS RESTRICTIONS TO ACTIVITIES OF DAILY LIVING. SALINE LOCK REMOVED.
[2021-07-14 10:55] VITALS: BP 117/78
--- NOTE | 2021-07-15 10:40 | PDOC3 ---
Discharge Summary Visit Information Date of Admission: Jul 13, 2021 Date of Discharge: Jul 14, 2021 Admitting Diagnosis: right breast cancer Final Diagnosis right breast cancer Brief Hospital Course Allergies Allergies Coded Allergies Type Severity Reaction Last Updated Verified sulfamethoxazole Allergy Intermediate RASH, NAUSEA 07/12/21 Yes trimethoprim Allergy Intermediate RASH, NAUSEA 07/12/21 Yes Vital Signs Vital Signs Date Time Temp Pulse Resp B/P (MAP) Pulse Ox O2 Delivery O2 Flow Rate FiO2 07/14/21 10:55 98.7 110 18 117/78 (91) 95 Room Air 98.7 Lab Results Laboratory Tests Test 07/13/21 16:42 Glucose (Fingerstick) 168 mg/dL (70-99) Brief Hospital Course Ms. Sparks is a 56 old female who underwent Right lumpectomy with wire localization, right axillary sentinel lymph node biopsy, right axillary dissection, removal of Port-A-Cath. Postoperatively tolerating diet, pain controlled, and ambulating. Ready for discharge home Discharge Information Condition at Discharge: Stable Follow Up: Weeks (1) Disposition/Orders: D/C to Home Scheduled Cholecalciferol (Vitamin D3) (Vitamin D3) 1,000 Unit Tablet, 2,000 UNIT PO DAILY for VITAMIN , (Reported) Entered as Reported by: TERRELL CARRILLO on 01/23/19 0830 Last Taken: Unknown Dose on 07/06/21 Last Action: Last Taken Edited on 07/13/21829 by Polly Duncan Multivitamin (Multivitamins) 1 Each Tablet, 1 TAB PO DAILY for SUPPLEMENT, #90 Ref 3 (Reported) Entered as Reported by: Skyla Ruelas on 01/22/19 1001 Last Taken: Unknown Dose on 07/11/21 Last Action: Last Taken Edited on 07/13/21829 by Polly Duncan Scheduled PRN Oxycodone/Apap 5-325 (Percocet 5-325 Mg Tablet ) 1 Each Tablet, 1 TAB PO PRN Q4HRS PRN for MILD PAIN, 1ST CHOICE, #20 Ref 0 Prescribed by: Rodrigue Love on 07/14/21 0951 Justicifation of Admission Dx: Justifications for Admission: Justification of Admission Dx: Yes RODRIGUE LOVE ELEVATOR EXAMINER AND ADJUSTER Jul 15, 2021 10:40
--- NOTE | 2021-07-21 14:12 | PATHOLOGY ---
[facility] Accession Number: [id number] . 01 Material submitted: . PART A: breast - SENTINEL LYMPH NODE HOT- FS. Modifiers: right PART B: breast - SENTINEL LYMPH NODE HOT- FS. Modifiers: right PART C: breast - SENTINEL LYMPH NODE 3- FS. Modifiers: right PART D: breast - SENTINEL LYMPH NODE- FS. Modifiers: right PART E: breast - RIGHT BREAST MASS- SHORT STITCH SUPERFICIAL, LONG STITCH LATERAL. Modifiers: right PART F: body - PORT-A-CATH PART G: breast - ADDITIONAL SUPERIOR MARGIN. Modifiers: right PART H: breast - INFERIOR MARGIN. Modifiers: right, inferior PART I: breast - MEDIAL MARGIN. Modifiers: right, medial PART J: breast - LATERAL MARGIN. Modifiers: right, lateral PART K: axilla - RIGHT AXILLARY CONTENTS. Modifiers: right . 01 Clinical history: . R BREAST CA . 02 Frozen section diagnosis: . INTRAOPERATIVE CONSULTATIONS WITH FROZEN SECTION: (Dusty Iniguez MD) . A. Lewis lymph node #1: - METASTATIC CARCINOMA INVOLVING ONE OF THREE LYMPH NODES. . The results are reported to Dr. Sarmiento in the operating room. . B. Lewis lymph node #2: - Negative for tumor. . The results are reported to Dr. Sarmiento in the operating room. . C. Lewis lymph node #3: - Negative for tumor. . The results are reported to Dr. Sarmiento in the operating room. . D. Lewis lymph node #4: - Two lymph nodes negative for tumor. . The results are reported to Dr. Sarmiento in the operating room. . Frozen sections performed at [facility], [address] [place] [address], [place] [address]. . . . FROZEN SECTION GROSS DESCRIPTION: A. The specimen is received fresh for intraoperative consultation and is designated "sentinel lymph node #1 (hot)". This consists of a segment of yellow fatty tissue measuring up to 2.3 x 1.8 cm. Sectioning reveals a pink to yellow-ruvalcaba nodular cut surface measuring up to approximately 1.2 cm in greatest dimension. This is submitted for frozen section as FSA1. The tissue remaining from frozen section is submitted for permanent sections as A1. . B. Received fresh for intraoperative consultation is "sentinel lymph node #2". This consists of a slightly lobulated segment of yellow-red fatty tissue measuring 2.2 x 1.8 cm. Sectioning reveals an eccentrically located yellow-ruvalcaba lymph node measuring up to 1.1 cm in greatest dimension. This is submitted for frozen section as FSB1. The tissue remaining from frozen section is submitted for permanent sections as B1. . C. The specimen is received fresh for intraoperative consultation and is designated, "sentinel lymph node #3". This consists of a segment of yellow-red fatty tissue measuring up to 3.0 x 2.0 cm. Sectioning reveals an eccentrically located yellow-ruvalcaba lymph node measuring up to approximately 1 cm in greatest dimension. This is submitted for frozen section as FSC1. The tissue remaining from frozen section is submitted for permanent sections as C1. . D. Received fresh for intraoperative consultation is "sentinel lymph node #4". This consists of three segments of yellow-red fatty tissue ranging from 1.0 cm up to 1.6 cm in greatest dimension. Sectioning reveals two yellow and brown lymph nodes, measuring 0.7 cm and 1.2 cm in greatest dimension. These are submitted together for frozen section as FSD1. The tissue remaining from frozen section is submitted for permanent sections as D1. . (JPM:santhosh; 07/18/2021) JUVENTINO/BRONSON . 02 Diagnosis: A. Lewis lymph node #1: - Metastatic carcinoma involving one of three lymph nodes (1/3). . B. Lewis lymph node #2: - Negative for tumor. . C. Lewis lymph node #3: - Negative for tumor. . D. Lewis lymph node #4: - Two lymph nodes negative for tumor (0/2). . E. Breast tissue, wire localized oriented right breast lumpectomy: - Invasive ductal carcinoma, histologic grade 3, forming a tumor mass measuring approximately 1.9 cm in greatest dimension. - Focal lymphovascular tumor invasion identified. - Invasive carcinoma is approximately 1.0 cm from the closest (superficial) margin of resection. - Previous biopsy site changes. - Proliferative fibrocystic changes with focal moderate/florid ductal epithelial hyperplasia and few intraductal micropapillomas. - Sclerosing adenosis, focal. - Few ancient fibroadenomas. . F. Port-A-Cath (gross only) . G. Breast tissue, additional superior margin: - Negative for tumor. - Fibrocystic changes, focal. . H. Breast tissue, inferior margin: - Negative for tumor. - Focal fibrocystic changes with focal mild to moderate ductal epithelial hyperplasia. - Sclerosing adenosis, focal. . I. Breast tissue, medial margin: - Negative for tumor. - Focal proliferative fibrocystic changes with focal moderate/florid ductal epithelial hyperplasia. - Sclerosing adenosis, focal. . J. Breast tissue, lateral margin: - Negative for tumor. - Focal proliferative fibrocystic changes with focal mild to moderate ductal epithelial hyperplasia. . K. Segments of adipose tissue and lymph nodes, right axillary contents: - Thirteen lymph nodes negative for metastatic carcinoma (0/13). . (JPM:nereida:marlin; 07/18/2021) . . Surgical Pathology Cancer Case Summary Protocol posting date: November 2019 INVASIVE CARCINOMA OF THE BREAST: Resection . Procedure ___ Other: Wire localized oriented lumpectomy . Specimen Laterality ___ Right . + Tumor Site + ___ Clock position: 12 o'clock . Tumor Size ___ Greatest dimension of largest invasive focus >1 mm: 19 mm . Histologic Type ___ Invasive carcinoma of no special type (ductal) . Histologic Grade (Luis Histologic Score) Glandular (Acinar)/Tubular Differentiation ___ Score 3 (<10% of tumor area forming glandular/tubular structures) . Nuclear Pleomorphism ___ Score 3 (vesicular nuclei, often with prominent nucleoli, exhibiting marked variation in size and shape, occasionally with very large and bizarre forms) . Mitotic Rate ___ Score 2 . Overall Grade ___ Grade 3 (scores of 8 or 9) . + Tumor Focality + ___ Single focus of invasive carcinoma . Ductal Carcinoma In Situ (DCIS) ___ Not identified . + Lobular Carcinoma In Situ (LCIS) + ___ Not identified . Margins Invasive Carcinoma Margins ___ Uninvolved by invasive carcinoma Distance from closest margin: ___ Specify 10 mm + Specify closest margin: Superficial margin . Regional Lymph Nodes ___ Involved by tumor cells Number of Lymph Nodes with Macrometastases: 1 . Size of Largest Metastatic Deposit: 3.5 mm . Total Number of Lymph Nodes Examined: 20 . Number of Lewis Nodes Examined: 7 . Treatment Effect in the Breast ___ No definite response to presurgical therapy in the invasive carcinoma . Treatment Effect in the Lymph Nodes ___ No definite response to presurgical therapy in metastatic carcinoma . + Lymphovascular Invasion + ___ Present . Pathologic Stage Classification (pTNM, AJCC 8th Edition) Primary Tumor (pT) ___ pT1c: Tumor >10 mm but less than or equal to 20 mm in greatest dimension . Regional Lymph Nodes (pN) ___ pN1a: Metastases in 1 to 3 axillary lymph nodes, at least 1 metastasis larger than 2.0 mm . + Additional Pathologic Findings + Specify: See diagnoses . + ___ Breast Biomarker Testing Performed on Previous Biopsy + Testing Performed on . + Estrogen Receptor (ER) + ___ Positive (greater than 10% of cells demonstrate nuclear positivity) 95% . + Progesterone Receptor (PgR) + ___ Negative . + HER2 (by immunohistochemistry) + ___ Equivocal (Score 2+) . + HER2 (by in situ hybridization) + ___ Negative (not amplified) . + ___ Ki-67 percentage of positive nuclei: 35% . + Microcalcifications + ___ Present in invasive carcinoma + ___ Present in non-neoplastic tissue [facility] 07/21/2021 1348 Local . 02 Comment: The sentinel lymph nodes are examined at multiple levels. In addition, immunoperoxidase stains for AE1/AE3 are obtained on each of the sentinel lymph nodes and yield the following results: . AE1/AE3 (A1): Metastatic carcinoma involving one of three lymph nodes. AE1/AE3 (B1): Negative for tumor. AE1/AE3 (C1): Negative for tumor. AE1/AE3 (D1): Two lymph nodes negative for tumor. . Thus, there is metastatic carcinoma involving 1 of 7 sentinel lymph nodes. . Sections of the right axillary contents reveal 13 additional lymph nodes which are negative for metastatic carcinoma. Thus, there is metastatic carcinoma involving 1 of 20 axillary lymph nodes. . Sections of the right breast lumpectomy reveal an invasive poorly differentiated ductal carcinoma, histologic grade 3, measuring approximately 1.9 cm in greatest dimension. Tumor cells show focal marked nuclear pleomorphism and are largely present in solid nests, but do show focal tubule formation. Some of the nests of tumor are fairly large suggestive of a component of ductal carcinoma in situ. A limited panel of immunoperoxidase stains is obtained on a couple of the blocks and yield the following results: . P63 (E11): Absence of myoepithelial cells of larger nests consistent with invasive carcinoma. Smooth muscle myosin heavy chain (E11): Absence of myoepithelial cells consistent with invasive carcinoma. P63 (E17): Absence of myoepithelial consistent with invasive carcinoma. Smooth muscle myosin heavy chain (E17): Absence of myoepithelial consistent with invasive carcinoma. . Thus, there is no component of ductal carcinoma in situ. There is focal lymphovascular tumor invasion. The invasive carcinoma is approximately 1.0 cm from the closest (superficial) margin of resection. . (JPM:delineator; 07/18/2021) . . 02 Electronically signed: . Dusty Iniguez MD, Pathologist NPI- [id number] . 01 Gross description: . A. PLEASE SEE GROSS DESCRIPTION UNDER FROZEN SECTION HEADING. . A1: Frozen section tissue remnant from cassette designated [facility] A1, entirely submitted A2: Remainder of specimen, entirely submitted . B. PLEASE SEE GROSS DESCRIPTION UNDER FROZEN SECTION HEADING. . B1: Frozen section tissue remnant from cassette designated [facility] B1, entirely submitted B2: Remainder of specimen, entirely submitted . C. PLEASE SEE GROSS DESCRIPTION UNDER FROZEN SECTION HEADING. . C1: Frozen section tissue remnant from cassette designated [facility] C1, entirely submitted C2: Remainder of specimen, entirely submitted . D. PLEASE SEE GROSS DESCRIPTION UNDER FROZEN SECTION HEADING. . D1: Frozen section tissue remnant from cassette designated [facility] D1, entirely submitted D2: Remainder of specimen, filtered and entirely submitted . E. Fixative: Formalin Labeled: Right breast mass, short stitch superficial long stitch lateral Specimen received: Intact Oriented: a short stitch designating superficial and a long stitch designating lateral and a needle localization wire located inferolaterally in the superficial margin and with minimal fibromuscular tissue present on the deep margin Weight: 157 g Dimensions: 10.6 cm superior to inferior x 8.0 cm medial to lateral x 4.0 cm superficial to deep . The specimen consists is inked as follows: superior-red inferior-blue superficial-green deep-black lateral-orange medial-yellow . Sectioned from: Superior to inferior Number of slices: 20 Lesion: 1.5 cm superior to inferior, 1.2 cm lateral to medial, 0.6 cm superficial to deep Lesion location in slices 13-16 . Located inferiorly abutting the lesion (in slice 17) is a soft, pink-white, ill defined, suspicious area (1.0 cm medial to lateral, 0.6 cm superficial to deep and 0.4 cm superior to inferior). If the lesion and suspicious area are contiguous then the new dimensions of the lesion would be 1.9 cm superior to inferior x 1.2 cm lateral to medial x 0.6 cm superficial to deep. . Lesion to margins: 4.6 cm to superior 1.7 cm to inferior 1.2 cm to superficial 1.7 cm to deep 2.0 cm to lateral 2.4 cm to medial . Suspicious area to margins (if not contiguous with lesion): 5.8 cm to superior 1.7 cm to inferior 1.5 cm to superficial 1.8 cm to deep 2.4 cm to lateral 2.9 cm to medial . Biopsy clip: Slice 15, a silver metallic spiral hooked clip within a biopsy cavity (0.2 x 0.2 x 0.2 cm) Uninvolved breast parenchyma: Displays approximately 10%-15% dense fibrous tissue . The specimen is submitted as follows: E1-E2: slice 1, superior margin, represented E3: Slice 13, superficial margin nearest lesion, represented E4: Slice 14, deep margin nearest lesion, represented E5-E6: Slice 14, lateral margin nearest lesion, represented E7: Slice 16, medial margin nearest lesion, represented E8-E9: Slice 15, lesion to include the entirety of the biopsy cavity, represented E10-E11: Slice 14, lesion, represented E12: Slice 17, superficial margin nearest suspicious area, represented E13: Slice 17, deep margin nearest suspicious area, represented E14: Slice 17, lateral margin nearest suspicious area, represented E15: Slice 17, medial margin nearest suspicious area, represented E16-E17: Slice 17, suspicious area, represented to include the section immediately abutting the lesion submitted in E16 E18: Slice 2, fibrous tissue, represented E19: slice 3, fibrous tissue, represented E20: slice 4, fibrous tissue, represented E21: Slice 5, fibrous tissue, represented E22: Slice 7, fibrous tissue, represented E23-E24: slice 9, fibrous tissue, represented E25: slice 18, fibrous tissue, represented E26: slice 20, inferior margin, represented . Cold ischemic time: Not provided Approximate total time in formalin: Greater than 6 and less than 72 hours . F. The specimen is received fresh, labeled "Isha Sparks, Port-a-cath gross only" and consists of a purple triangular port (2.7 x 2.3 x 1.4 cm) with one flat side that displays the following inscription: "BARD", "CT", "[id number]". The opposing side displays a discoid rubbery rice component (1.3 x 1.3 x 0.3 cm) which is surrounded by a silver metallic edge. Extending from one side of the hardware is a white, rubbery, plastic tubing (25.2 cm in length by 0.2 cm in diameter) that displays following inscriptions: "20", "15", "10", "5" and 19 evenly spaced black dots. This specimen is for gross examination only. Photographs are taken. . G. The specimen is received in formalin, labeled "Isha Sparks, additional superior margin" and consists of a 13 g irregular portion of fat (6.6 x 5.0 x 1.2 cm) which has not been previously oriented. The opposing sides are differentially inked black and orange. Sectioning displays a pale ruvalcaba, firm calcified nodule (0.3 x 0.3 x 0.2 cm) that is suspicious for involving both the black and the orange inked margin. The remaining cut surfaces are fatty and unremarkable with less than 5% fibrous tissue. The specimen is submitted sequentially, entirely in G1-G16 with the calcified nodule entirely submitted in G11. The cold ischemic time and time placed in formalin are not provided. The approximate total time in formalin is greater than 6 and less than 72 hours. . H. The specimen is received in formalin, labeled "Isha Sparks, inferior margin" and consists of a previously partially disrupted 9 g portion of irregular fat (7.0 x 4.5 x 1.1 cm) which has not been previously oriented. The opposing sides are differentially inked black and blue. The specimen fragments upon serially sectioning to reveal fatty cut surfaces with less than 5% fibrous tissue. The specimen is submitted sequentially, entirely in H1-H13. The cold ischemic time and time placed in formalin are not provided. The approximate total time in formalin is greater than 6 and less than 72 hours. . I. The specimen is received in formalin, labeled "Bridger, Isha, medial margin" and consists of a previously fragmented into 3 pieces, disrupted portion of fat (9 g, 7.5 x 5.0 x 1.2 cm). The opposing sides of the largest tissue are differentially inked orange and black the 2 smaller tissues are differentially, entirely inked red and green. Sectioning through the largest tissue reveals a ruvalcaba-pink, ill-defined lesion (0.6 x 0.6 x 0.5 cm) which involves both the black and orange sides. The remaining cut surfaces are unremarkable with minimal fibrous tissue (less than 5%). The specimen is submitted sequentially, entirely in I1-I12 with the lesion submitted in I7-I8. Photographs are taken. The cold ischemic time and time placed in formalin are not provided. The approximate total time in formalin is greater than 6 and less than 72 hours. . J. The specimen is received in formalin, labeled "Bridger, Isha, lateral margin" and consists of a 7 g unoriented irregular and previously partially disrupted fatty tissue (5.5 x 4.8 x 0.9 cm). The opposing sides are differentially inked black and orange. The specimen is serially sectioned and submitted sequentially, entirely in J1-J8. The cold ischemic time and time placed in formalin are not provided. The approximate total time in formalin is greater than 6 and less than 72 hours. . K. The specimen is received in formalin, labeled "Isha Sparks, right axillary contents" and consists of 3 ruvalcaba irregular tissues (7.4 x 6.5 x 2.1 cm in aggregate) that contains 13 rubbery candidate lymph nodes (ranging from 0.3 x 0.2 x 0.2 cm to 3.5 x 2.4 x 1.5 cm). [employer] In[employer] sections to include the entirety of the candidate lymph nodes are submitted as follows: K1: 3 intact candidate lymph nodes (not inked) and 1 trisected candidate lymph node (inked black), entirely submitted K2-K5: 1 serially sectioned candidate lymph node within each cassette, entirely submitted K6-K7: 1 serially sectioned candidate lymph node, entirely submitted K8-K9: 1 serially sectioned candidate lymph node, entirely submitted K10-K14: 1 serially sectioned candidate lymph node, entirely submitted K15-K20: 1 serially sectioned candidate lymph node, entirely submitted ([facility]; 07/14/2021) DKA/DKA 07/18/2021 1710 Local . 02 Pathologist provided ICD-10: C77.9, C50.911, N60.11, N62, N60.22 . 02 CPT . 668866, 761429, 194634, 006856, 400226, 631116, 443889, 054345, 889149, 916516, 512577, 783385, 318235, 687125, [id number], [id number] Specimen Comment: A courtesy copy of this report has been sent to [phone], [phone] Specimen Comment: [id number] Specimen Comment: Report sent to / DR OVALLES Performed at: 01 [facility] [address], [place] [id number] MD Terrence Granados MD Phone: [phone] Performed at: 02 [facility] [address] [place], [place] [id number] MD Dusty Iniguez MD Phone: [phone]
== END 2021-07-14 11:15 | disposition home or self-care (01) ==
LOC: SURG 07:44 → 4 SOUTHEST 14:35
PROVIDERS: ADMIT Surgery; ATTEND Surgery
DX: C50.911 Malignant neoplasm of unspecified site of right female breast (principal); R92.8 Other abnormal and inconclusive findings on diagnostic imaging of breast; Z79.899 Other long term (current) drug therapy
CPT/HCPCS: 19285; 19301; 36590; 38525; 38792; 76098; 77065; 82962; 88307; 88331; 88341; 88342; 96360; 96361; A4209; A4364; A4930; A6254; A6258; A6402; A9520; C1819; G0378; G0379; J0690; J0780; J1100; J1170; J2270; J2370; J2405; J2704; J3010; J3490; Q9968; 96374; A4223; A4452

== ENCOUNTER → 2021-08-03 | Outpatient (CLI) | payer OTHER ==
[2021-07-14 10:55] VITALS: BP 117/78
[~2021-08-03] MED LIST changes: -LIDOCAINE 1% Multi-Dose 20 ML VIAL. INJ ONE; -LIDOCAINE 1% Multi-Dose 20 ML VIAL. ONE; +OXYC1TAB15 PO
--- NOTE | 2021-08-03 15:49 | RAD ---
EXAM: XR CHEST 2V 08/03/2021 10:44 AM CLINICAL INDICATION: Breast cancer COMPARISON: Chest radiograph 03/21/2021 TECHNIQUE: PA and lateral views of the chest FINDINGS: A right chest wall port has been removed. The heart and mediastinum are normal. Lungs are adequately expanded. The vague right midlung opacity and linear left basilar atelectasis have resolve d. No consolidation, pleural effusion, or pneumothorax. Pulmonary vascularity is normal. Mild degene rative disc disease. IMPRESSION: 1. Interval removal of port. 2. Resolution of vague right midlung opacity and left basilar atelectasis. 3. No new abnormality. Electronically signed by: Olivia Scott MD (08/03/2021 3:46 PM) [id number]
== END ==
LOC: RAD 10:25
PROVIDERS: ATTEND Radiology Radiation Oncology
DX: C50.911 Malignant neoplasm of unspecified site of right female breast (principal); M51.34 Other intervertebral disc degeneration, thoracic region
CPT/HCPCS: 71046

== ENCOUNTER → 2021-08-05 | Outpatient (CLI) | payer OTHER ==
[2021-07-14 10:55] VITALS: BP 117/78
[~2021-08-05] MED LIST changes: +CONTRAST GIVEN. MC PRN; +IOHEXOL 240 MG/ML 50ML VIAL. PO ONE; +IOHEXOL 300 MG/ML 100ML VIAL. IV ONE
--- NOTE | 2021-08-05 14:29 | RAD ---
EXAM: CT CHEST, ABDOMEN, AND PELVIS WITH CONTRAST INDICATION: Breast cancer COMPARISON: CT abdomen and pelvis 07/04/2017 TECHNIQUE: Helical CT imaging performed of the chest, abdomen and pelvis after administration of 75 m L Omnipaque 350 intravenous contrast. Sagittal and coronal reformats were obtained. One or more of the following individualized dose reduction techniques were utilized for this examinat ion: 1. Automated exposure control 2. Adjustment of the mA and/or kV according to patient size 3. Use of iterative reconstruction technique. FINDINGS: CHEST: Thyroid gland and thoracic inlet: Normal. Heart and great vessels: Heart is normal in size. No pericardial effusion. No coronary artery calcifi cations. Thoracic aorta is normal in caliber. Mediastinum and meli: There is no mediastinal or hilar lymphadenopathy. Lungs and pleura: There are multiple calcified granulomas in the lungs. No suspicious pulmonary nodul es. There is are clear. There is no pleural effusion. Chest wall and axillae: There is large fluid collection in the upper right breast measuring 5.1 x 4.7 cm. There is an additional fluid collection in the right axilla measuring 3.4 x 3.1 cm. Small subcut aneous fluid collection in the far upper inner right chest normal measuring 1.7 x 1.5 cm with a proba ble tract to the skin. There is skin thickening in the right breast. No axillary lymphadenopathy. Bones: No acute osseous abnormality in the chest. There is an old left posterior ninth rib fracture. ABDOMEN AND PELVIS: Liver: There is a 5.3 cm cyst at the dome the liver. No suspicious liver lesions Gallbladder/Biliary Tree: Normal. Pancreas: The pancreas is hypodense in appearance, of uncertain significance. Spleen: Normal. Adrenal Glands: Normal. Kidneys/Ureters/Bladder: Kidneys are normal in size and enhance symmetrically. No hydronephrosis. Lar ge calculus in the right renal pelvis on CT abdomen pelvis 07/04/2017 has resolved. Ureters and bladde r are normal. There is a 1 cm simple cyst in the right kidney. Reproductive Organs: Uterus is anteverted. No adnexal mass. Stomach, small bowel, and colon: Stomach is normal. There is no small bowel obstruction. Appendix is normal. Colon is normal. Vasculature: No aortic aneurysm. Lymph Nodes: No lymphadenopathy. Peritoneum and retroperitoneum: No free fluid or free air. Bones: No acute osseous abnormality in the abdomen and pelvis. IMPRESSION: 1. 5 cm fluid collection in the upper right breast and approximately 3 cm fluid collection in the ri ght axilla, likely postoperative seromas. Additional 2 cm subcutaneous fluid collection or scarring i n the upper inner right chest wall with overlying soft tissue thickening extending to the skin. This likely correlates with the patient's prior port site. Skin thickening in the right breast is likely s equela of treatment changes. 2. No evidence of metastatic disease in the chest, abdomen, or pelvis. Electronically signed by: Olivia Scott MD (08/05/2021 2:27 PM) [id number]
== END ==
LOC: CT 08:59
PROVIDERS: ATTEND Radiology Radiation Oncology
DX: C50.911 Malignant neoplasm of unspecified site of right female breast (principal); N20.0 Calculus of kidney; N28.1 Cyst of kidney, acquired; J84.10 Pulmonary fibrosis, unspecified; R23.4 Changes in skin texture; K76.89 Other specified diseases of liver; Z87.81 Personal history of (healed) traumatic fracture
CPT/HCPCS: 71260; 74177; Q9966; Q9967

== ENCOUNTER → 2021-09-27 | Outpatient (CLI) | payer OTHER ==
[~2021-09-27] MED LIST changes: -CONTRAST GIVEN. MC PRN; -IOHEXOL 240 MG/ML 50ML VIAL. PO ONE; -IOHEXOL 300 MG/ML 100ML VIAL. IV ONE
--- NOTE | 2021-09-27 14:57 | KCIC ---
INDICATION: Screening for osteopenia/osteoporosis. Reason: INVASIVE DUCTAL CA, RETIREMENT USE OF AROM ATASE INHIBITORS / Spl. Instructions: / History: COMPARISON: None. TECHNIQUE: Bone densitometry was performed through the lumbar spine and proximal femur. IMPRESSION: Lumbar Spine: BMD: 1.2 T-Score: 1.4 Range: Normal Proximal Femur: BMD: 0.96 T-Score: 0.2 Range: Normal World Health Organization Criteria for Bone Density: T-Score: > -1.0: Normal Range < -1.0 to -2.5: Osteopenic Range < -2.5: Osteoporotic Range Electronically signed by: Ivan Latham MD (09/27/2021 2:55 PM) [id number]
== END ==
LOC: KCIC DEXA 13:49
PROVIDERS: ATTEND Internal Medicine Hematology & Oncology
DX: C50.911 Malignant neoplasm of unspecified site of right female breast (principal); Z78.0 Asymptomatic menopausal state; Z79.811 Long term (current) use of aromatase inhibitors
CPT/HCPCS: 77080

== ENCOUNTER → 2021-10-13 | Outpatient (CLI) | payer OTHER ==
[~2021-10-13] VITALS: Ht 142.2 cm; Wt 93.0 kg
[~2021-10-13] MED LIST changes: +SOTROVIMAB 500 MG in IV DEXTROSE 5% 50 ML IV ONE
[2021-10-13 10:21] VITALS: BP 129/71
[2021-10-13 11:31] VITALS: BP 115/66
[2021-10-13 12:05] VITALS: BP 121/79
[2021-10-13 12:10] VITALS: BP 124/68
== END | disposition home or self-care (01) ==
LOC: OPSVCOP 08:14
PROVIDERS: ATTEND Internal Medicine Pulmonary Disease
DX: U07.1 COVID-19 (principal); Z85.3 Personal history of malignant neoplasm of breast; Z79.811 Long term (current) use of aromatase inhibitors
CPT/HCPCS: J7060; M0247; Q0247; 96365

== ENCOUNTER → 2022-01-24 | Outpatient (CLI) | payer OTHER ==
[2021-10-13 12:10] VITALS: BP 124/68
[~2022-01-24] MED LIST changes: -SOTROVIMAB 500 MG in IV DEXTROSE 5% 50 ML IV ONE
[2022-01-24 10:10] LABS: BASO % 1 % (0-3); EOS # 0.2 x10^3/uL (0.0-0.7); EOS % 4 % (0-3); HEMATOCRIT 41.6 % (36.0-47.0); HEMOGLOBIN 13.9 g/dL (12.0-15.5); LYMPH # 0.8 x10^3/uL (1.0-4.8); LYMPH % 15 % (24-48); MEAN CORPUSCULAR HEMOGLOBIN 29 pg (25-35); MEAN CORPUSCULAR HGB CONC 34 g/dL (31-37); MEAN CORPUSCULAR VOLUME 87 fL (79-100); MONO # 0.3 x10^3/uL (0.0-1.1); MONO % 6 % (0-9); NEUT # 3.9 x10^3/uL (1.8-7.7); NEUT % 75 % (31-73); PLATELET COUNT 220 x10^3/uL (140-400); RED BLOOD COUNT 4.76 x10^6/uL (3.50-5.40); RED CELL DISTRIBUTION WIDTH 13.9 % (11.5-14.5); WHITE BLOOD COUNT 5.2 x10^3/uL (4.0-11.0)
[2022-01-24 10:31] LABS: CALCIUM 9.1 mg/dL (8.5-10.1); CREATININE 0.8 mg/dL (0.6-1.0); GFR 74.2; POTASSIUM 3.9 mmol/L (3.5-5.1)
[2022-01-24 10:34] LABS: ALBUMIN 3.6 g/dL (3.4-5.0); TOTAL BILIRUBIN 0.4 mg/dL (0.2-1.0); TOTAL PROTEIN 7.2 g/dL (6.4-8.2)
[2022-01-24 18:31] LABS: FREE T4 0.96 ng/dL (0.76-1.46); THYROID STIM HORMONE (TSH) 1.683 uIU/mL (0.358-3.74)
== END ==
LOC: ONCLAB 09:35
PROVIDERS: ATTEND Internal Medicine Hematology & Oncology
DX: C50.911 Malignant neoplasm of unspecified site of right female breast (principal); E03.2 Hypothyroidism due to medicaments and other exogenous substances
CPT/HCPCS: 36415; 80053; 84439; 84443; 85025